=== PATIENT | female | born 1935 | race Caucasian/White ===

== ENCOUNTER 2017-04-22 18:53 | Inpatient (IN) | payer OTHER, MEDICARE ==
[~2017-04-22] VITALS: Ht 162.6 cm; Wt 57.0 kg
[~2017-04-22 18:53] MED LIST: LORA1TAB PO; PERC5TAB12 PO; REST30CA PO; SYNT112T PO; THYROID MED PO
[2017-04-22 18:56] VITALS: BP 118/70; PULSE 58; RESP 24; TEMP 98.8; O2SAT 80
[2017-04-22] MEDS ORDERED: SODIUM CHLORIDE 0.9% FLUSH 10 ML FLUSH IVF PRN (20:00)
--- NOTE | 2017-04-22 20:09 | PD ---
HPI Chief Complaint: Hip Injury Time Seen by Provider: 19:43 Travel History International Travel<30 days: No Contact w/Intl Traveler<30days: No Traveled to known affect area: No History of Present Illness HPI Patient comes into the emergency department for evaluation status post mechanical fall that occurred around 1:00 this afternoon. Patient states she was carrying some dishes when she accidentally tripped over her 's shoe causing to hit her head on the wall twisting landing on her left hip and hurting her back. Patient states she's tried resting, taking an aspirin and Aleve for the pain with minimal to no relief of symptoms. Pain is worse certain movement. Denies any radiation of the pain. Patient states she's been feeling short of breath, but has COPD and normally wears oxygen at night. Patient has felt short of breath since the fall, but has not been on her oxygen. Denies any chest pain, fevers, nausea, vomiting, abdominal pain, loss or change in bowel or bladder, loss of consciousness, or change in vision. PFSH Past Medical History Hx Anticoagulant Therapy: No Arthritis: Yes Anxiety: Yes Depression: Yes Cancer: Yes (SKIN,THYROID) Cardiovascular Problems: No High Cholesterol: Yes Chemotherapy: Yes (HX CHEMO 12 YEARS AGO) COPD: Yes Cerebrovascular Accident: No Diabetes: Yes (borderline) Diminished Hearing: No Endocrine: No Gastrointestinal Disorders: Yes Genitourinary: No Hepatitis: Yes (HEP B AND C) Hiatal Hernia: No Immune Disorder: No Inguinal Hernia: Yes (REPAIRED) Implanted Vascular Access Dvce: Yes Medical other: Yes (CELLULITIS FROM CAT BITE) Musculoskeletal: Yes (ARTHRITIS, OSTEOPINIA) Neurologic: No Psychiatric: Yes (ANXIETY) Reproductive: No Respiratory: Yes (COPD, O2 AT NIGHT, SOB) Integumentary: Yes (HX PHLEBITIS, CELLULITIS) Pneumonia: Yes Thyroid Disease: Yes (THYROID CANCER) Menopausal: Yes : 4 Para: 4 Ovarian Cysts: Yes (REMOVED) Past Surgical History Abdominal Surgery: Yes (HERNIA REPAIR) AICD: No Eye Surgery: Yes (BILAT CATARACT) Gynecologic Surgery: Yes (OVARIAN CYST REMOVED) Hysterectomy: No Joint Replacement: Yes (RIGHT HIP) Oral Surgery: Yes (TONSILLECTOMY) Pacemaker: No Thoracic Surgery: Yes Tonsillectomy: Yes Other Surgery: Yes Social History Alcohol Use: Yes (PT STATES "OCCASIONAL") Tobacco Use: No Substance Use: No Allergies-Medications (Allergen,Severity, Reaction): Coded Allergies: Sulfa (Sulfonamide Antibiotics) (Unverified Allergy, Severe, RASH, 04/22/17 ) levothyroxine (Unverified Allergy, Severe, makes her sick, 04/22/17) levothyroxine sodium (Unverified Allergy, Severe, makes her sick, 04/22/17) sulfamethoxazole (Unverified Allergy, Severe, makes her sick, 04/22/17) trimethoprim (Unverified Allergy, Severe, makes her sick, 04/22/17) acetaminophen (Unverified Allergy, Intermediate, ITCHING, 04/22/17) hydrocodone (Unverified Allergy, Intermediate, ITCHING, 04/22/17) lansoprazole (Unverified Adverse Reaction, Severe, 04/22/17) GI UPSET tramadol (Unverified Adverse Reaction, Severe, Itching, 04/22/17) Reported Meds & Prescriptions Reported Meds & Active Scripts Active Percocet 5-325 mg (Oxycodone/Acetaminophen) 1 Tab 1 Tab PO Q8HR PRN Restoril 30 mg (Temazepam) 30 Mg Cap 1 Cap PO HS 7 Days Reported [2ND Thyroid Med] PO DAILY Synthroid 112 mcg (Levothyroxine Sodium) 112 Mcg Tab 112 Mcg PO DAILY Lorazepam 1 Mg Tab 1 Mg PO BID PRN Review of Systems Except as stated in HPI: all other systems reviewed are Neg Physical Exam Narrative GENERAL: Well-developed, well nourished, in no acute distress, and non-ill appearing. SKIN: Focused skin assessment warm and dry. HEAD: Atraumatic. Normocephalic. EYES: Pupils equal and round. EOMI. No scleral icterus. No injection or drainage. ENT: No nasal bleeding or discharge. Mucous membranes pink and moist. NECK: Trachea midline. No JVD. Supple. No nuclear rigidity. No tenderness or crepitus over midline cervical spine. CARDIOVASCULAR: Regular rate and rhythm. No murmur appreciated. RESPIRATORY: No accessory muscle use. No respiratory distress. Decreased breath sounds throughout. GASTROINTESTINAL: Abdomen soft, non-tender, nondistended, and no guarding. Hepatic and splenic margins not palpable. No pulsatile mass. MUSCULOSKELETAL: No obvious deformities. No clubbing. No cyanosis. No edema. Hip: FROM and equal BL with passive flexion, extension, Abduction, Adduction, and internal/external rotation. Patient does report pain with passive movement of left hip. Pulses equal BL distal to injury. Capillary refill less than 2 seconds distal to injury and equal BL. FROM distal to injury and equal BL. Strength distal to injury equal BL. NV intact distal to injury and equal BL. Plantar flexion and dorsal flexion equal BL. Dorsal pulses equal BL. Sensation equal BL 1st web space. No tenderness or crepitus over thoracic spine. Patient reports tenderness in her lower lumbar perivertebral spinal muscles. There is no crepitus. Shoulder:FROM equal BL with passive flexion, extension, Abduction, Adduction, internal/external rotation, and pronation/supination. Sensation equal BL deltoid muscles. Pulses equal BL distal to injury. Capillary refill less than 2 seconds distal to injury and equal BL. FROM distal to injury and equal BL. Strength distal to injury equal BL. NV intact distal to injury equal BL. Flexion and extension of thumb equal BL. Equal strength and movement with abduction/adductions of BL fingers. Head Setter strength equal BL. NEUROLOGICAL: Awake and alert. No obvious cranial nerve deficits. Motor grossly within normal limits. Normal speech. PSYCHIATRIC: Appropriate mood and affect; insight and judgment normal. Data Data Last Documented VS Vital Signs Date Time Temp Pulse Resp B/P (MAP) Pulse Ox O2 Delivery O2 Flow Rate FiO2 04/22/17 20:42 94 Nasal Cannula 2.00 04/22/17 20:31 70 17 110/71 (84) 04/22/17 18:56 98.8 Orders Orders Electrocardiogram (04/22/17 19:58) Basic Metabolic Panel (Bmp) (04/22/17 19:58) Ckmb (Isoenzyme) Profile (04/22/17 19:58) Complete Blood Count With Diff (04/22/17 19:58) Magnesium (Mg) (04/22/17 19:58) Prothrombin Time / Inr (Pt) (04/22/17 19:58) Act Partial Throm Time (Ptt) (04/22/17 19:58) Troponin I (04/22/17 19:58) Chest, Single Ap (04/22/17 19:58) Ecg Monitoring (04/22/17 19:58) Iv Access Insert/Monitor (04/22/17 19:58) Oximetry (04/22/17 19:58) Oxygen Administration (04/22/17 19:58) Sodium Chloride 0.9% Flush (Ns Flush) (04/22/17 20:00) Ct Brain W/O Iv Contrast(Rout) (04/22/17 ) Ct Cerv Spine W/O Contrast (04/22/17 ) Apply Cervical Collar (04/22/17 19:58) Ct Lumb Spine W/O Contrast (04/22/17 ) Ct Thor Spine W/O Contrast (04/22/17 ) Hip, Uni(Ap&Lat) W Ap Pelvis (04/22/17 ) Blood Gas Venous (Vbg) (04/22/17 20:44) CKMB (04/22/17 20:25) CKMB% (04/22/17 20:25) Ketorolac Inj (Toradol Inj) (04/22/17 21:45) Ct Hip W/O Contrast (04/22/17 ) Splint Or Brace Apply/Monitor (04/22/17 22:22) Consult Orthopedic (04/22/17 ) Admit Order (Ed Use Only) (04/22/17 22:50) Labs Laboratory Tests Test 04/22/17 20:25 04/22/17 21:43 White Blood Count 9.7 TH/MM3 Red Blood Count 4.08 MIL/MM3 Hemoglobin 11.6 GM/DL Hematocrit 35.2 % Mean Corpuscular Volume 86.2 FL Mean Corpuscular Hemoglobin 28.5 PG Mean Corpuscular Hemoglobin Concent 33.0 % Red Cell Distribution Width 15.1 % Platelet Count 133 TH/MM3 Mean Platelet Volume 8.6 FL Neutrophils (%) (Auto) 80.0 % Lymphocytes (%) (Auto) 13.1 % Monocytes (%) (Auto) 5.0 % Eosinophils (%) (Auto) 1.7 % Basophils (%) (Auto) 0.2 % Neutrophils # (Auto) 7.7 TH/MM3 Lymphocytes # (Auto) 1.3 TH/MM3 Monocytes # (Auto) 0.5 TH/MM3 Eosinophils # (Auto) 0.2 TH/MM3 Basophils # (Auto) 0.0 TH/MM3 CBC Comment DIFF FINAL Differential Comment Prothrombin Time 11.6 SEC Prothromb Time International Ratio 1.0 RATIO Activated Partial Thromboplast Time 23.6 SEC Blood Urea Nitrogen 12 MG/DL Creatinine 0.69 MG/DL Random Glucose 124 MG/DL Calcium Level 8.3 MG/DL Magnesium Level 1.9 MG/DL Sodium Level 141 MEQ/L Potassium Level 3.8 MEQ/L Chloride Level 106 MEQ/L Carbon Dioxide Level 25.3 MEQ/L Anion Gap 10 MEQ/L Estimat Glomerular Filtration Rate 82 ML/MIN Total Creatine Kinase 142 U/L Creatine Kinase MB 1.8 NG/ML Troponin I LESS THAN 0.02 NG/ML Blood Gas Puncture Site RN IV Blood Gas Patient Temperature 98.6 Venous Blood pH 7.44 Venous Blood Partial Pressure CO2 38 mmHg Venous Blood Partial Pressure O2 43 mmHg Venous Blood HCO3 25 mmol/L Venous Blood Oxygen Saturation 78 % Venous Blood Oxygen Content 12.3 Vol % Venous Blood Base Excess 1.6 mmol/L Oxygen Delivery Device NASAL CANNULA Blood Gas Liter Flow 2 L/M [facility] Medical Decision Making Medical Screen Exam Complete: Yes Emergency Medical Condition: Yes Interpretation(s) EKG reviewed by Dr. Anton shows sinus rhythm with ventricular rate 75. No STEMI. Head CT read by the radiologist shows: 1. Diffuse stable cerebral atrophy. 2. No acute intracranial abnormality. Chest x-ray read by the radiologist shows: 1. Cardiomegaly. 2. Mild pulmonary vascular congestion bilaterally. 3. Degenerative changes and scoliosis of the thoracolumbar spine. X-ray left hip from the radiologist shows: 1. Questionable subtle cortical irregularity involving the subcapital region of the left proximal femur raising the possibility of subtle fracture. Clinical correlation is recommended. 2. Old fractures involving the left superior and inferior pubic rami. 3. Mild degenerative changes involving the left hip joint. 4. Degenerative changes involving the lower lumbar spine. CT of cervical spine read by the radiologist shows: 1. No acute fracture or prevertebral soft tissue swelling. 2. Moderate left neural foraminal narrowing at C5-6 and C6-7. 3. Grade I anterolisthesis of C7 in relation to T1 and C4 and in relation to C5. 4. Cervical spondylosis at C5-6 and C6-7. 5. No bony spinal canal stenosis. CT thoracic spine read by the radiologist shows: 1. Acute mild compression deformity involving the superior end plate of L1 with 5 mm of retropulsion of the posterior superior aspect of the vertebral body which results in minimal effacement of the anterior thecal sac but no spinal stenosis. 2. Probable mild chronic compression deformities involving T1 and T4. 3. Degenerative changes and scoliosis of the thoracic spine. 4. Coronary artery calcifications. 5. Diffuse interstitial infiltrates predominantly posteriorly consistent with acute or chronic interstitial disease. CT lumbar spine read by the radiologist shows: 1. Acute comminuted fracture involving the left sacrum. 2. Acute mild compression deformities involving the superior end plates of L1 and L2 with minimal retropulsion of the posterior superior vertebral bodies measuring 5 mm at L1 and 3 mm at L2 but resulting in no significant spinal stenoses at these levels. 3. Moderate circumferential spinal stenosis and bilateral foraminal narrowing at L5-S1 secondary to diffuse disc bulge, facet joint hypertrophy and ligamentous laxity. 4. Multiple infrarenal abdominal aortic aneurysms with the largest noted distally and measuring 3.2 cm in greatest transverse dimension. 5. Diffuse osteoporosis of the lumbar spine. CT left hip read by radiologist shows: 1. Acute comminuted fracture involving the left sacrum. 2. Acute fracture involving the left symphysis pubis. 3. Degenerative changes involving the left hip joint as well as sclerosis of the left femoral head suggesting possible osteonecrosis. 4. No acute fracture of the left proximal femur. 5. Old fracture involving the left inferior pubic ramus. Differential Diagnosis Fracture, strain, contusion, hypoxemia, COPD exacerbation, pneumonia, pneumothorax, hemopneumothorax, other Narrative Course Patient seen and examined. IV is established. Patient placed on cardiac and O2 monitoring. Patient was placed on 2 L of oxygen. Initial laboratory and radiological studies were ordered. After CT head was negative for bleed, IV Toradol was ordered secondary to patient's allergies. Patient refusing ABG will check a VBG. VBG shows pH 7.438 PCO2 of 38.2 PO2 42.7 bicarbonate 25.4 Patient reassessed in no acute distress. Discussed all findings and plan care with patient who is agreeable for admission. All questions were answered. TLSO braces ordered. Discussed patient with Dr. Anton, who is in agreement with plan of care and disposition. Discussed patient with orthopedics, who is agreeable to consult patient. Discussed patient with hospitalist who is agreeable to admit the patient. Physician Communication Physician Communication [id number] Riley, orthopedic on-call, who agrees with TLSO brace and will consult. [id number] Robles, who is agreeable to admit the patient. Diagnosis Primary Impression: Sacral fracture, closed Qualified Codes: S32.10XA - Unspecified fracture of sacrum, initial encounter for closed fracture Additional Impressions: Fracture of ramus of left pubis Qualified Codes: S32.592A - Other specified fracture of left pubis, initial encounter for closed fracture Compression fx, lumbar spine Qualified Codes: S32.010A - Wedge compression fracture of first lumbar vertebra, initial encounter for closed fracture Aneurysm of infrarenal abdominal aorta Head injury, closed Qualified Codes: S09.90XA - Unspecified injury of head, initial encounter COPD (chronic obstructive pulmonary disease) Qualified Codes: J44.9 - Chronic obstructive pulmonary disease, unspecified Condition: Stable Prem Reed Apr 22, 2017 20:09
[2017-04-22 20:31] VITALS: BP 110/71; PULSE 70; RESP 17; O2SAT 93
[2017-04-22 20:42] VITALS: O2SAT 94
[2017-04-22 20:53] LABS: AUTOMATED NEUTROPHIL # 7.7 TH/MM3 (1.8-7.7); BASOPHIL % 0.2 % (0.0-2.0); EOSINOPHIL # 0.2 TH/MM3 (0-0.4); EOSINOPHIL % 1.7 % (0.0-4.0); HEMATOCRIT 35.2 % (35.0-46.0); HEMO FLAGS DIFF FINAL; LYMPH % 13.1 % (9.0-44.0); LYMPHOCYTE # 1.3 TH/MM3 (1.0-4.8); MEAN CELL VOLUME 86.2 FL (80.0-100.0); MEAN CORPUSCULAR HEMOGLOBIN 28.5 PG (27.0-34.0); PLATELET COUNT 133 TH/MM3 (150-450); RED BLOOD COUNT 4.08 MIL/MM3 (4.00-5.30); RED CELL DISTRIBUTION WIDTH 15.1 % (11.6-17.2); WHITE BLOOD COUNT 9.7 TH/MM3 (4.0-11.0)
[2017-04-22 20:59] LABS: APTT (PATIENT) 23.6 SEC (24.3-30.1); PROTHROMBIN TIME - PATIENT 11.6 SEC (9.8-11.6)
[2017-04-22 21:17] LABS: ANION GAP 10 MEQ/L (5-15); BICARBONATE 25.3 MEQ/L (21.0-32.0); BLOOD UREA NITROGEN 12 MG/DL (7-18); CHLORIDE 106 MEQ/L (98-107); GLOMERULAR FILTRATION RATE 82 ML/MIN (>89); MAGNESIUM 1.9 MG/DL (1.5-2.5); POTASSIUM 3.8 MEQ/L (3.5-5.1); SODIUM (NA) 141 MEQ/L (136-145)
[2017-04-22 21:21] LABS: CREATINE KINASE 142 U/L (26-192)
--- NOTE | 2017-04-22 21:29 | RADRPT ---
EXAM DATE/TIME: 04/22/2017 21:19 [facility] COMPARISON: CT BRAIN W/O CONTRAST, February 10, 2016, 1:09. INDICATIONS : Trauma, fall. RADIATION DOSE: 47.22 CTDIvol (mGy) MEDICAL HISTORY : Hernia. Diabetes mellitus type 2. Hepatitis.Skin and thyroid cancer. SURGICAL HISTORY : Hernia repair. ENCOUNTER: Initial ACUITY: 1 day PAIN SCALE: 0/10 LOCATION: cranial TECHNIQUE: Multiple contiguous axial images were obtained of the head. Using automated exposure control and adj ustment of the mA and/or kV according to patient size, radiation dose was kept as low as reasonably a chievable to obtain optimal diagnostic quality images. DICOM format image data is available electro nically for review and comparison. FINDINGS: CEREBRUM: Diffuse cerebral atrophy is again noted and stable. No evidence of midline shift, mass lesion, hemorr henry or acute infarction. No extra-axial fluid collections are seen. POSTERIOR FOSSA: The cerebellum and brainstem are intact. The 4th ventricle is midline. The cerebellopontine angle i s unremarkable. EXTRACRANIAL: The visualized portion of the orbits is intact. SKULL: The calvaria is intact. No evidence of skull fracture. CONCLUSION: 1. Diffuse stable cerebral atrophy. 2. No acute intracranial abnormality. Brian Freeman MD on April 22, 2017 at 21:26 Board Certified Radiologist. This report was verified electronically.
--- NOTE | 2017-04-22 21:31 | RADRPT ---
EXAM DATE/TIME: 04/22/2017 20:51 [facility] COMPARISON: CHEST SINGLE AP, November 08, 2013, 13:36. INDICATIONS : Chest pain post fall MEDICAL HISTORY : Carcinoma, thyroid. Chronic obstructive pulmonary disease. Hepatitis. SURGICAL HISTORY : Tonsillectomy. ENCOUNTER: Initial ACUITY: 1 day PAIN SCORE: 7/10 LOCATION: Bilateral chest FINDINGS: The heart is enlarged. Mild pulmonary vascular congestion is noted bilaterally. Degenerative change s and scoliosis of the thoracolumbar spine are noted. CONCLUSION: 1. Cardiomegaly. 2. Mild pulmonary vascular congestion bilaterally. 3. Degenerative changes and scoliosis of the thoracolumbar spine. Brian Freeman MD on April 22, 2017 at 21:20 Board Certified Radiologist. This report was verified electronically.
--- NOTE | 2017-04-22 21:37 | RADRPT ---
EXAM DATE/TIME: 04/22/2017 20:53 [facility] COMPARISON: No previous studies available for comparison. INDICATIONS : Left hip pain post fall MEDICAL HISTORY : Carcinoma, thyroid. Chronic obstructive pulmonary disease. Hepatitis. SURGICAL HISTORY : Tonsillectomy. ENCOUNTER: Initial ACUITY: 1 day PAIN SCORE: 10/10 LOCATION: Left hip FINDINGS: There is very subtle subcapital cortical irregularity raising the possibility of subtle subcapital fr acture of the left proximal femur. Clinical correlation is recommended. Old fractures involving the left superior and inferior pubic rami are noted. Mild degenerative changes are noted involving the left hip joint. Right hip replacement is noted. Degenerative changes are noted within the lower lum bar spine. There is an acute fracture involving the left sacrum also. CONCLUSION: 1. Questionable subtle cortical irregularity involving the subcapital region of the left proximal fem ur raising the possibility of subtle fracture. Clinical correlation is recommended. 2. Acute left sacrum fracture. 3. Old fractures involving the left superior and inferior pubic rami. 4. Mild degenerative changes involving the left hip joint. 5. Degenerative changes involving the lower lumbar spine. Brian Freeman MD on April 22, 2017 at 21:21 Board Certified Radiologist. This report was verified electronically.
[2017-04-22] MEDS ORDERED: KETOROLAC TROMETHAMINE 30 MG/ML (IVP) VIAL IV PUSH ONE (21:45)
--- NOTE | 2017-04-22 21:51 | RADRPT ---
EXAM DATE/TIME: 04/22/2017 21:19 [facility] COMPARISON: No previous studies available for comparison. INDICATIONS : Trauma, fall. RADIATION DOSE: 11.26 CTDIvol (mGy) MEDICAL HISTORY : Hernia. Diabetes mellitus type 2. Hepatitis. Skin and thyroid cancer. SURGICAL HISTORY : Hernia repair. ENCOUNTER: Initial ACUITY: 1 day PAIN SCALE: 3/10 LOCATION: Neck TECHNIQUE: Volumetric scanning of the cervical spine was performed. Multiplanar reconstructions in the sagittal, coronal and oblique axial planes were performed. Using automated exposure control and adjustment o f the mA and/or kV according to patient size, radiation dose was kept as low as reasonably achievable to obtain optimal diagnostic quality images. DICOM format image data is available electronically f or review and comparison. FINDINGS: There is no acute fracture or prevertebral soft tissue swelling. There is grade I anterolisthesis of C7 in relation to T1. There is also grade I anterolisthesis of C4 in relation to C5. Cervical spon dylosis is noted at C5-6 and C6-7. The bony relationship and alignment between C1 and C2 is well yi ntained. Scoliosis of the cervical spine is noted. No bony spinal canal stenosis is noted. Moderat e left neural foraminal narrowing is noted at C5-6 and C6-7. CONCLUSION: 1. No acute fracture or prevertebral soft tissue swelling. 2. Moderate left neural foraminal narrowing at C5-6 and C6-7. 3. Grade I anterolisthesis of C7 in relation to T1 and C4 and in relation to C5. 4. Cervical spondylosis at C5-6 and C6-7. 5. No bony spinal canal stenosis. Brian Freeman MD on April 22, 2017 at 21:34 Board Certified Radiologist. This report was verified electronically.
[2017-04-22 21:54] LABS: CKMB 1.8 NG/ML (0.5-3.6)
--- NOTE | 2017-04-22 22:07 | RADRPT ---
EXAM DATE/TIME: 04/22/2017 21:22 [facility] COMPARISON: No previous studies available for comparison. INDICATIONS : Trauma, fall. RADIATION DOSE: 35.86 CTDIvol (mGy) ; Combined studies - Thoracic Spine/Lumbar Spine MEDICAL HISTORY : Hernia. Diabetes mellitus type 2. Hepatitis. Skin and thyroid cancer. SURGICAL HISTORY : Hernia repair. ENCOUNTER: Initial ACUITY: 1 day PAIN SCALE: 6/10 LOCATION: Thoracic TECHNIQUE: Volumetric scanning of the thoracic spine was performed. Multiplanar reconstructions in the sagittal , coronal and oblique axial planes were performed. Using automated exposure control and adjustment o f the mA and/or kV according to patient size, radiation dose was kept as low as reasonably achievable to obtain optimal diagnostic quality images. DICOM format image data is available electronically f or review and comparison. FINDINGS: There is evidence of an acute mild compression fracture involving the superior end plate of L1 with m inimal retropulsion of the posterior superior aspect of the vertebral body measuring approximately 5 mm and resulting in slight defacement of the anterior thecal sac at this level. No other acute fract ures are identified within the thoracic spine. There are mild probable chronic compression deformiti es involving T1 and T4. Degenerative changes and scoliosis of the thoracic spine are noted. Coronar y artery calcifications are noted. Diffuse interstitial infiltrates are noted predominantly posterio rly within the lungs consistent with acute or chronic interstitial disease. CONCLUSION: 1. Acute mild compression deformity involving the superior end plate of L1 with 5 mm of retropulsion of the posterior superior aspect of the vertebral body which results in minimal effacement of the ant erior thecal sac but no spinal stenosis. 2. Probable mild chronic compression deformities involving T1 and T4. 3. Degenerative changes and scoliosis of the thoracic spine. 4. Coronary artery calcifications. 5. Diffuse interstitial infiltrates predominantly posteriorly consistent with acute or chronic inters titial disease. Brian Freeman MD on April 22, 2017 at 21:49 Board Certified Radiologist. This report was verified electronically.
--- NOTE | 2017-04-22 22:31 | RADRPT ---
EXAM DATE/TIME: 04/22/2017 21:22 [facility] COMPARISON: No previous studies available for comparison. INDICATIONS : Trauma, fall. RADIATION DOSE: 35.86 CTDIvol (mGy) ; Combined studies - Thoracic Spine/Lumbar Spine MEDICAL HISTORY : Hernia. Diabetes mellitus type 2. Hepatitis. Skin and thyroid cancer. SURGICAL HISTORY : Hernia repair. ENCOUNTER: Initial ACUITY: 1 day PAIN SCALE: 6/10 LOCATION: Lumbar TECHNIQUE: Volumetric scanning of the lumbar spine was performed. Multiplanar reconstructions in the sagittal, coronal and oblique axial planes were performed. Using automated exposure control and adjustment of the mA and/or kV according to patient size, radiation dose was kept as low as reasonably achievable t o obtain optimal diagnostic quality images. DICOM format image data is available electronically for review and comparison. FINDINGS: There is evidence of acute mild compression fractures involving the superior end plates of L1 and L2 with 5 mm of retropulsion of the posterior superior aspect of L1 and 3 mm of retropulsion of the post erior superior aspect of L2. No spinal stenosis is noted at either level. There is also acute commi nuted fractures involving the left sacrum. Multiple infrarenal abdominal aortic aneurysms are noted with the largest distally measuring 3.2 cm in transverse dimension. There is no spondylolisthesis of the lumbar spine. Diffuse osteoporosis of the lumbar spine is noted. There is moderate circumferen tial spinal stenosis and bilateral foraminal narrowing at L5-S1 secondary to diffuse disc bulge, face t joint hypertrophy and ligamentous laxity. CONCLUSION: 1. Acute comminuted fracture involving the left sacrum. 2. Acute mild compression deformities involving the superior end plates of L1 and L2 with minimal ret ropulsion of the posterior superior vertebral bodies measuring 5 mm at L1 and 3 mm at L2 but resultin g in no significant spinal stenoses at these levels. 3. Moderate circumferential spinal stenosis and bilateral foraminal narrowing at L5-S1 secondary to d iffuse disc bulge, facet joint hypertrophy and ligamentous laxity . 4. Multiple infrarenal abdominal aortic aneurysms with the largest noted distally and measuring 3.2 c m in greatest transverse dimension. 5. Diffuse osteoporosis of the lumbar spine. Brian Freeman MD on April 22, 2017 at 22:04 Board Certified Radiologist. This report was verified electronically.
--- NOTE | 2017-04-22 22:42 | RADRPT ---
EXAM DATE/TIME: 04/22/2017 21:22 [place] COMPARISON: No previous studies available for comparison. INDICATIONS : Fall. Left hip pain. RADIATION DOSE: 16.54 CTDIvol (mGy) MEDICAL HISTORY : Diabetes mellitus type 2. Hepatitis. Skin and thyroid cancer. Hernia. SURGICAL HISTORY : Hernia repair. ENCOUNTER: Initial ACUITY: 1 day PAIN SCALE: 6/10 LOCATION: Left pelvis TECHNIQUE: Volumetric scanning of the hip was performed. Using automated exposure control and adjustment of the mA and/or kV according to patient size, radiation dose was kept as low as reasonably achievable to o btain optimal diagnostic quality images. DICOM format image data is available electronically for rev iew and comparison. FINDINGS: There is evidence of an acute comminuted fracture involving the left sacrum. There is also an acute fracture involving the left symphysis pubis. Old left inferior pubic ramus fracture is noted. No ac [place] proximal femur fracture is noted. Degenerative changes involving the left hip joint are noted. There is sclerosis of the left femoral head suggesting a possible osteonecrosis. Right hip replaceme nt is noted. CONCLUSION: 1. Acute comminuted fracture involving the left sacrum. 2. Acute fracture involving the left symphysis pubis. 3. Degenerative changes involving the left hip joint as well as sclerosis of the left femoral head alejandre ggesting possible osteonecrosis. 4. No acute fracture of the left proximal femur. 5. Old fracture involving the left inferior pubic ramus. Brian Freeman MD on April 22, 2017 at 22:16 Board Certified Radiologist. This report was verified electronically.
--- NOTE | 2017-04-22 22:56 | HHI.HP ---
HPI Service [facility] Primary Care Physician Non-Staff Admission Diagnosis sacrum fracture, pubic rami fracture, lumbar spine compression fx Diagnoses: (1) Fall Diagnosis: Principal (2) Sacral fracture, closed Diagnosis: Principal (3) Fracture of ramus of left pubis Diagnosis: Principal (4) Compression fx, lumbar spine Diagnosis: Principal (5) Thrombocytopenia Diagnosis: Principal (6) COPD (chronic obstructive pulmonary disease) Diagnosis: Principal Travel History International Travel<30 Days: No Contact w/Intl Traveler <30 Da: No Traveled to Known Affected Are: No History of Present Illness This is an 82-year-old female with a PMH of Anxiety, Depression, COPD, Hepatitis B and C and Hypothyroidism who was brought to the ER secondary to c/o hip pain after a fall. Per pt she tripped over one of 's shoes and landed on left hip. +head trauma, no LOC reported. On arrival, BP 118/70, HR 58, O2 sat 80% on RA, Afebrile. Currently O2 sat 93% on 2L NC. CBC unremarkable except for platelets 133, previously 167 on 07/07/15. GFR 82, previously 169 on 07/07/15. Troponin negative. INR 1.0 CXR with mild pulmonary vascular congestion bilaterally. CT Head with no acute findings. CT C-spine negative. CT T/L Spine with acute mild compression deformity of L1 and L2, moderate spinal stenosis and bilateral foraminal narrowing at L5-S1, infrarenal abdominal aortic aneurysms, largest 3.2 cm, CT Lower Extremity w/ acute comminuted fracture involving left sacral and acute fracture involving left symphysis pubis. Ortho consulted by ER physician, recommended TLSO brace and eval in am. Review of Systems Except as stated in HPI: all other systems reviewed are Neg ROS: 14 point review of systems otherwise negative. Past Family Social History Past Medical History PMH: Anxiety, Depression, COPD, Hepatitis B and C and Hypothyroidism Past Surgical History PAST SURGICAL HISTORY: Hernia Repair, Bilateral Cataract Surgery, Ovarian Cyst Removal, Right Hip Replacement, Tonsillectomy Allergies: Coded Allergies: Sulfa (Sulfonamide Antibiotics) (Unverified Allergy, Severe, RASH, 04/22/17 ) levothyroxine (Unverified Allergy, Severe, makes her sick, 04/22/17) levothyroxine sodium (Unverified Allergy, Severe, makes her sick, 04/22/17) sulfamethoxazole (Unverified Allergy, Severe, makes her sick, 04/22/17) trimethoprim (Unverified Allergy, Severe, makes her sick, 04/22/17) acetaminophen (Unverified Allergy, Intermediate, ITCHING, 04/22/17) hydrocodone (Unverified Allergy, Intermediate, ITCHING, 04/22/17) lansoprazole (Unverified Adverse Reaction, Severe, 04/22/17) GI UPSET tramadol (Unverified Adverse Reaction, Severe, Itching, 04/22/17) Family History PAST FAMILY HISTORY: Reviewed. No h/o DM or CAD Social History PAST SOCIAL HISTORY: Occasional alcohol. Negative for tobacco or drugs. Physical Exam Vital Signs Vital Signs Date Time Temp Pulse Resp B/P (MAP) Pulse Ox O2 Delivery O2 Flow Rate FiO2 04/22/17 20:31 93 Nasal Cannula 2.00 04/22/17 20:31 70 17 110/71 (84) 93 Nasal Cannula 2.00 04/22/17 19:15 16 04/22/17 18:56 98.8 58 24 118/70 (86) 80 Room Air Physical Exam PE: GENERAL: Elderly white female in no acute distress. HEENT: PERRLA, EOMI. No scleral icterus or conjunctival pallor. No lid lag or facial droop. CARDIOVASCULAR: Regular rate and rhythm. No obvious murmurs to auscultation. No chest tenderness to palpation. RESPIRATORY: No obvious rhonchi or wheezing. Clear to auscultation. Breath sounds equal bilaterally. GASTROINTESTINAL: Abdomen soft, non-tender, nondistended. BS normal. MUSCULOSKELETAL: Extremities without clubbing, cyanosis, or edema. No obvious deformities. Decreased ROM of LE due to pain complaints, worse on left. NEUROLOGICAL: Awake, alert and oriented x4. No focal neurologic deficits. Moving both upper and lower extremities spontaneously. Laboratory Laboratory Tests Test 04/22/17 20:25 White Blood Count 9.7 Red Blood Count 4.08 Hemoglobin 11.6 Hematocrit 35.2 Mean Corpuscular Volume 86.2 Mean Corpuscular Hemoglobin 28.5 Mean Corpuscular Hemoglobin Concent 33.0 Red Cell Distribution Width 15.1 Platelet Count 133 Mean Platelet Volume 8.6 Neutrophils (%) (Auto) 80.0 Lymphocytes (%) (Auto) 13.1 Monocytes (%) (Auto) 5.0 Eosinophils (%) (Auto) 1.7 Basophils (%) (Auto) 0.2 Neutrophils # (Auto) 7.7 Lymphocytes # (Auto) 1.3 Monocytes # (Auto) 0.5 Eosinophils # (Auto) 0.2 Basophils # (Auto) 0.0 CBC Comment DIFF FINAL Differential Comment Prothrombin Time 11.6 Prothromb Time International Ratio 1.0 Activated Partial Thromboplast Time 23.6 Blood Urea Nitrogen 12 Creatinine 0.69 Random Glucose 124 Calcium Level 8.3 Magnesium Level 1.9 Sodium Level 141 Potassium Level 3.8 Chloride Level 106 Carbon Dioxide Level 25.3 Anion Gap 10 Estimat Glomerular Filtration Rate 82 Total Creatine Kinase 142 Creatine Kinase MB 1.8 Troponin I LESS THAN 0.02 Result Diagram: 04/22/17202404/22/172024 Caprini VTE Risk Assessment Caprini VTE Risk Assessment: Mod/High Risk (score >= 2) Caprini Risk Assessment Model Point Value = 1 Point Value = 2 Point Value = 3 Point Value = 5 Age 41-60 Minor surgery BMI > 25 kg/m2 Swollen legs Varicose veins or History of unexplained or recurrent spontaneous Oral contraceptives or hormone replacement Sepsis (< 1 month) Serious lung disease, including pneumonia (< 1 month) Abnormal pulmonary function Acute myocardial infarction Congestive heart failure (< 1 month) History of inflammatory bowel disease Medical patient at bed rest Age 61-74 Arthroscopic surgery Major open surgery (> 45 min) Laparoscopic surgery (> 45 min) Malignancy Confined to bed (> 72 hours) Immobilizing plaster cast Central venous access Age >= 75 History of VTE Family history of VTE Factor V Leiden Prothrombin [id number] Lupus anticoagulant Anticardiolipin antibodies Elevated serum homocysteine Heparin-induced thrombocytopenia Other congenital or acquired thrombophilia Stroke (< 1 month) Elective arthroplasty Hip, pelvis, or leg fracture Acute spinal cord injury (< 1 month) Prophylaxis Regimen Total Risk Factor Score Risk Level Prophylaxis Regimen 0-1 Low Early ambulation 2 Moderate Order ONE of the following: *Sequential Compression Device (SCD) *Heparin 5000 units SQ BID 3-4 Higher Order ONE of the following medications: *Heparin 5000 units SQ TID *Enoxaparin/Lovenox 40 mg SQ daily (WT < 150 kg, CrCl > 30 mL/min) *Enoxaparin/Lovenox 30 mg SQ daily (WT < 150 kg, CrCl > 10-29 mL/min) *Enoxaparin/Lovenox 30 mg SQ BID (WT < 150 kg, CrCl > 30 mL/min) AND/OR *Sequential Compression Device (SCD) 5 or more Highest Order ONE of the following medications: *Heparin 5000 units SQ TID (Preferred with Epidurals) *Enoxaparin/Lovenox 40 mg SQ daily (WT < 150 kg, CrCl > 30 mL/min) *Enoxaparin/Lovenox 30 mg SQ daily (WT < 150 kg, CrCl > 10-29 mL/min) *Enoxaparin/Lovenox 30 mg SQ BID (WT < 150 kg, CrCl > 30 mL/min) AND *Sequential Compression Device (SCD) Assessment and Plan Problem List: (1) Fall ICD Code: W19.XXXA - Unspecified fall, initial encounter (2) Fracture of ramus of left pubis ICD Code: S32.592A - Other specified fracture of left pubis, initial encounter for closed fracture Status: Acute (3) Sacral fracture, closed ICD Code: S32.10XA - Unspecified fracture of sacrum, initial encounter for closed fracture Status: Acute (4) Compression fx, lumbar spine ICD Code: S32.000A - Wedge compression fracture of unspecified lumbar vertebra , initial encounter for closed fracture Status: Acute (5) Thrombocytopenia ICD Code: D69.6 - Thrombocytopenia, unspecified (6) COPD (chronic obstructive pulmonary disease) ICD Code: J44.9 - Chronic obstructive pulmonary disease, unspecified Status: Acute Assessment and Plan A/P: 1. Fall: s/p mechanical trip and fall, +head trauma, no LOC reported. CT Head w/ no acute findings, CT C-Spine negative for fracture, images reviewed by me. 2. Left Sacral Fx: secondary to above. CT Lower Ext w/ acute comminuted fracture of left sacrum, images reviewed by me. Ortho consulted by ER physician , darrius forrest in am. 3. Left Pubic Fx: secondary to above. CT w/ acute fracture of left symphysis pubis, images reviewed. Ortho to eval, PT for eval/tx. 4. L1-L2 Compression Fx: secondary to above. CT L-Spine w/ acute mild compression deformity L1-L2, images reviewed. Ortho recommended TLSO brace, will eval in am. 5. Thrombocytopenia: Acute. Platelets 133, previously 167 on 07/07/15. No active bleeding at this time, will monitor, repeat labs in am. 6. COPD: Chronic Respiratory Failure, stable. Transient hypoxia on arrival w / O2 sat 80%, currently 95% on 2L NC, no wheezing, no acute respiratory distress. Monitor. DuoNeb prn. 7. DVT Prophylaxis: Lovenox 8. Social work for d/c planning as needed. 9. Case discussed w/ ER physician at length. Physician Certification 2 Midnight Certification Type: Admission for Inpatient Services Order for Inpatient Services The services are ordered in accordance with Medicare regulations or non- Medicare payer requirements, as applicable. In the case of services not specified as inpatient-only, they are appropriately provided as inpatient services in accordance with the 2-midnight benchmark. Estimated LOS (days): 2 days is the estimated time the patient will need to remain in the hospital, assuming treatment plan goals are met and no additional complications. Post-Hospital Plan: Not yet determined Problem Qualifiers (1) Sacral fracture, closed: Qualified Codes: S32.10XA - Unspecified fracture of sacrum, initial encounter for closed fracture (2) Fracture of ramus of left pubis: Qualified Codes: S32.592A - Other specified fracture of left pubis, initial encounter for closed fracture (3) Compression fx, lumbar spine: Qualified Codes: S32.010A - Wedge compression fracture of first lumbar vertebra , initial encounter for closed fracture (4) COPD (chronic obstructive pulmonary disease): Qualified Codes: J44.9 - Chronic obstructive pulmonary disease, unspecified Asuncion Robles MD Apr 22, 2017 22:56
[2017-04-22] MEDS ORDERED: BISACODYL 10 MG SUPP RECTAL PRN (23:00)
[2017-04-22] MEDS ORDERED: SODIUM CHLORIDE 0.9% FLUSH 10 ML FLUSH IV FLUSH PRN (23:00)
[2017-04-22] MEDS ORDERED: MAGNESIUM HYDROXIDE SUSP 30 ML CUP PO PRN (23:00)
[2017-04-22] MEDS ORDERED: RESP: ALBUTEROL 2.5 MG/IPRATROPIUM 0.5 MG NEB (PRN) NEB (23:00)
[2017-04-22] MEDS ORDERED: LACTULOSE SYRUP 20 GM/30 ML CUP PO PRN (23:00)
[2017-04-22] MEDS ORDERED: SENNOSIDES 8.6 MG TAB PO PRN (23:00)
[2017-04-22] MEDS ORDERED: ONDANSETRON HCL 4 MG/2 ML VIAL IVP PRN (23:00)
[2017-04-22 23:01] VITALS: BP 117/62; PULSE 73; RESP 16; O2SAT 95
[2017-04-22] MEDS: SODIUM CHLOR 0.9% 1000 ML INJ 1,000 ML IV SCH (23:40)
[2017-04-22 23:46] VITALS: BP 118/62; PULSE 73; RESP 17; TEMP 97.2; O2SAT 92
[2017-04-23] MEDS: MORPHINE SULFATE 4 MG/ML INJ IV PRN ×5 (00:25→22:15)
[2017-04-23 00:36] LABS: BLOOD GAS VENOUS BASE EXCESS 1.6 mmol/L (-2-2); BLOOD GAS VENOUS HCO3 25 mmol/L (22-26); BLOOD GAS VENOUS O2 CONTENT 12.3 Vol % (9.0-17.0); BLOOD GAS VENOUS O2 HGB SAT 78 % (70-76); BLOOD GAS VENOUS PCO2 38 mmHg (44-48); BLOOD GAS VENOUS PO2 43 mmHg (35-40); BLOOD GAS VENOUS pH 7.44 (7.360-7.400); CRITICAL VALUE NO; OXYGEN DEVICE NASAL CANNULA; TEMP CORR TO 98.6
[2017-04-23 00:37] LABS: LITER FLOW 2 L/M; STAT YES
[2017-04-23 04:55] VITALS: BP 100/54; PULSE 70; RESP 17; TEMP 97; O2SAT 92
[2017-04-23] MEDS ORDERED: INSULIN HUMAN REGULAR 1,000 UNITS/10 ML VIAL SQ PRN (07:00)
[2017-04-23] MEDS ORDERED: CHLORHEXIDINE GLUCONATE 2 % 1 PACK (2 CLOTHS) TOPICAL PRN (07:00)
[2017-04-23] MEDS ORDERED: LACTATED RINGER'S 1000 ML IV PRN (07:00)
[2017-04-23] MEDS ORDERED: POVIDONE IODINE 5% (ANTISEPSIS KIT) 4 APPLICATIONS EACH NARE PRN (07:00)
[2017-04-23 07:46] LABS: AUTOMATED NEUTROPHIL # 5.3 TH/MM3 (1.8-7.7); BASOPHIL % 0.4 % (0.0-2.0); EOSINOPHIL # 0.6 TH/MM3 (0-0.4); EOSINOPHIL % 7.5 % (0.0-4.0); HEMO FLAGS DIFF FINAL; LYMPH % 25.4 % (9.0-44.0); LYMPHOCYTE # 2.2 TH/MM3 (1.0-4.8); MEAN CELL VOLUME 86.6 FL (80.0-100.0); MEAN CORPUSCULAR HEMOGLOBIN 29.1 PG (27.0-34.0); MEAN CORPUSCULAR HGB CONC 33.6 % (32.0-36.0); MONO % 5.2 % (0.0-8.0); NEUT % 61.5 % (16.0-70.0); PLATELET COUNT 113 TH/MM3 (150-450); RED BLOOD COUNT 3.93 MIL/MM3 (4.00-5.30); RED CELL DISTRIBUTION WIDTH 15.4 % (11.6-17.2); WHITE BLOOD COUNT 8.7 TH/MM3 (4.0-11.0)
[2017-04-23 08:00] VITALS: BP 103/62; PULSE 72; RESP 20; TEMP 98.2; O2SAT 90
[2017-04-23 08:08] LABS: ANION GAP 6 MEQ/L (5-15); AST (GOT) 16 U/L (15-37); BICARBONATE 26.6 MEQ/L (21.0-32.0); BLOOD UREA NITROGEN 14 MG/DL (7-18); CHLORIDE 106 MEQ/L (98-107); GLOMERULAR FILTRATION RATE 98 ML/MIN (>89); POTASSIUM 3.4 MEQ/L (3.5-5.1); SODIUM (NA) 139 MEQ/L (136-145)
[2017-04-23 08:10] LABS: ALT (GPT) 17 U/L (10-53)
[2017-04-23 08:12] LABS: ALKALINE PHOSPHATASE 69 U/L (45-117); TOTAL BILIRUBIN ADULT 0.5 MG/DL (0.2-1.0)
[2017-04-23] MEDS: ENOXAPARIN SODIUM 40 MG/0.4 ML SYRINGE SQ SCH (08:24)
[2017-04-23] MEDS: SODIUM CHLOR 0.9% 1000 ML INJ 1,000 ML IV SCH ×2 (08:24→18:54)
[2017-04-23] MEDS: DOCUSATE SODIUM 50 MG/SENNA 8.6 MG TAB PO SCH ×2 (08:24→20:39)
[2017-04-23] MEDS: SODIUM CHLORIDE 0.9% FLUSH 10 ML FLUSH IV FLUSH SCH ×2 (08:24→20:39)
--- NOTE | 2017-04-23 08:40 | PD.CONS ---
cc: Sofia Donnelly Sacrum fracture, lumbar compression fractures, pubic symphysis fracture (Sofia Donnelly) HPI Service Orthopedic Surgeons Consult Requested By ER staff Reason for Consult Pubic and lumbar fractures Primary Care Physician Non-Staff Admission Diagnosis sacrum fracture, pubic symphysis fracture, lumbar spine compression fxs Diagnoses: (1) Fall Diagnosis: Principal (2) Sacral fracture, closed (3) Compression fracture of L1 lumbar vertebra (4) Compression fracture of L2 lumbar vertebra (5) Closed fracture of left side of symphysis pubis (6) COPD (chronic obstructive pulmonary disease) (7) Thrombocytopenia Chief Complaint: Fall, pubic and lumbar fractures (Sofia Donnelly) History of Present Illness 82-year-old female presented to [place] emergency department late last night after she had a trip and fall incident. She admits she had gynecological surgery last week and has been very "sick and out of it on the pain medication" . She states she's had a very Difficult time in the last week since surgery. Last evening she states that she tripped and fell over her boyfriend shoes. She presented to [facility] after having immediate pain in her pelvis and had a difficult time walking. Upon evaluation and radiographs was revealed that she sustained nondisplaced sacral fracture, left pubic symphasis fracture as well as L1 and L2 compression fractures. At this time orthopedic consultation was requested. She states she previously ambulated unassisted prior to this injury. Her orthopedic surgeries include a right hip total arthroplasty by Dr. Bakari Obrien. She is not currently anticoagulated. She lives at home with her boyfriend. No other signs of musculoskeletal injuries at this time. (Sofia Donnelly) Review of Systems Well outlined in medical record (Sofia Donnelly) Past Family Social History Past Medical History PMH: Anxiety, Depression, COPD, Hepatitis B and C and Hypothyroidism Past Surgical History PAST SURGICAL HISTORY: Hernia Repair, Bilateral Cataract Surgery, Ovarian Cyst Removal, Right Hip Replacement, Tonsillectomy (Sofia Donnelly) Allergies: Coded Allergies: Sulfa (Sulfonamide Antibiotics) (Unverified Allergy, Severe, RASH, 04/22/17 ) levothyroxine (Unverified Allergy, Severe, makes her sick, 04/22/17) levothyroxine sodium (Unverified Allergy, Severe, makes her sick, 04/22/17) sulfamethoxazole (Unverified Allergy, Severe, makes her sick, 04/22/17) trimethoprim (Unverified Allergy, Severe, makes her sick, 04/22/17) acetaminophen (Unverified Allergy, Intermediate, ITCHING, 04/22/17) hydrocodone (Unverified Allergy, Intermediate, ITCHING, 04/22/17) lansoprazole (Unverified Adverse Reaction, Severe, 04/22/17) GI UPSET tramadol (Unverified Adverse Reaction, Severe, Itching, 04/22/17) Active Ordered Medications Current Medications Medications (Trade) Dose Ordered Sig/Loy Route Start Time Stop Time Status Last Admin (Duoneb Neb) 1 ampule Q4HR NEB PRN NEB 04/22/17 23:00 Sodium Chloride 1,000 ml @ 100 mls/hr Q10H IV 04/22/17 22:54 04/22/17 23:40 (NS Flush) 2 ml UNSCH PRN IV FLUSH 04/22/17 23:00 (NS Flush) 2 ml BID IV FLUSH 04/23/17 09:00 (Zofran Inj) 4 mg Q6H PRN IVP 04/22/17 23:00 (Lovenox Inj) 40 mg Q24H SQ 04/23/17 09:00 (Morphine Inj) 2 mg Q3H PRN IV 04/22/17 23:00 04/23/17 04:09 (Homa-Colace) 1 tab BID PO 04/23/17 09:00 (Milk Of Magnesia Liq) 30 ml Q12H PRN PO 04/22/17 23:00 (Senokot) 17.2 mg Q12H PRN PO 04/22/17 23:00 (Dulcolax Supp) 10 mg DAILY PRN RECTAL 04/22/17 23:00 (Lactulose Liq) 30 ml DAILY PRN PO 04/22/17 23:00 Lactated Ringer's 1,000 ml @ 30 mls/hr Q24H PRN IV 04/23/17 07:00 04/26/17 06:59 (Betadine 5% Antisepsis Kit) 1 applic CREDIT VERIFICATION CLERK PRN EACH NARE 04/23/17 07:00 04/26/17 06:59 (Chlorhexidine 2% Cloth) 3 pack CREDIT VERIFICATION CLERK PRN TOPICAL 04/23/17 07:00 04/26/17 06:59 (NovoLIN R INJ) See Protocol Table ... CREDIT VERIFICATION CLERK PRN SQ 04/23/17 07:00 04/26/17 06:59 Reported Meds & Active Scripts Active Percocet 5-325 mg (Oxycodone/Acetaminophen) 1 Tab 1 Tab PO Q8HR PRN Restoril 30 mg (Temazepam) 30 Mg Cap 1 Cap PO HS 7 Days Reported [2ND Thyroid Med] PO DAILY Synthroid 112 mcg (Levothyroxine Sodium) 112 Mcg Tab 112 Mcg PO DAILY Lorazepam 1 Mg Tab 1 Mg PO BID PRN Family History PAST FAMILY HISTORY: Reviewed. No h/o DM or CAD Social History PAST SOCIAL HISTORY: Occasional alcohol. Negative for tobacco or drugs. (Sofia Donnelly) Physical Exam Vital Signs Vital Signs Date Time Temp Pulse Resp B/P (MAP) Pulse Ox O2 Delivery O2 Flow Rate FiO2 04/23/17 07:32 Nasal Cannula 2.00 04/23/17 04:55 97.0 70 17 100/54 (69) 92 04/22/17 23:46 97.2 73 17 118/62 (80) 92 04/22/17 23:31 04/22/17 23:01 73 16 117/62 (80) 95 Nasal Cannula 2.00 04/22/17 20:42 94 Nasal Cannula 2.00 04/22/17 20:31 93 Nasal Cannula 2.00 04/22/17 20:31 70 17 110/71 (84) 93 Nasal Cannula 2.00 04/22/17 19:15 16 04/22/17 18:56 98.8 58 24 118/70 (86) 80 Room Air Physical Exam B/L LE: She has pain with any attempted range of motion of her bilateral lower extremities, she is able to freely move her ankle and distal digits as well as knee without pain, calf are soft and nontender, negative Homans sign, and an NVI Lumbar: No specific areas of palpable tenderness noted at this time, range of motion is not tested secondary to pain from pelvis No other signs of muscular skeletal injuries at this time Laboratory Laboratory Tests Test 04/22/17 20:25 04/22/17 21:43 04/23/17 06:30 White Blood Count 9.7 8.7 Red Blood Count 4.08 3.93 Hemoglobin 11.6 11.4 Hematocrit 35.2 34.0 Mean Corpuscular Volume 86.2 86.6 Mean Corpuscular Hemoglobin 28.5 29.1 Mean Corpuscular Hemoglobin Concent 33.0 33.6 Red Cell Distribution Width 15.1 15.4 Platelet Count 133 113 Mean Platelet Volume 8.6 9.0 Neutrophils (%) (Auto) 80.0 61.5 Lymphocytes (%) (Auto) 13.1 25.4 Monocytes (%) (Auto) 5.0 5.2 Eosinophils (%) (Auto) 1.7 7.5 Basophils (%) (Auto) 0.2 0.4 Neutrophils # (Auto) 7.7 5.3 Lymphocytes # (Auto) 1.3 2.2 Monocytes # (Auto) 0.5 0.5 Eosinophils # (Auto) 0.2 0.6 Basophils # (Auto) 0.0 0.0 CBC Comment DIFF FINAL DIFF FINAL Differential Comment Prothrombin Time 11.6 Prothromb Time International Ratio 1.0 Activated Partial Thromboplast Time 23.6 Blood Urea Nitrogen 12 14 Creatinine 0.69 0.59 Random Glucose 124 91 Calcium Level 8.3 7.7 Magnesium Level 1.9 Sodium Level 141 139 Potassium Level 3.8 3.4 Chloride Level 106 106 Carbon Dioxide Level 25.3 26.6 Anion Gap 10 6 Estimat Glomerular Filtration Rate 82 98 Total Creatine Kinase 142 Creatine Kinase MB 1.8 Troponin I LESS THAN 0.02 Blood Gas Puncture Site RN IV Blood Gas Patient Temperature 98.6 Venous Blood pH 7.44 Venous Blood Partial Pressure CO2 38 Venous Blood Partial Pressure O2 43 Venous Blood HCO3 25 Venous Blood Oxygen Saturation 78 Venous Blood Oxygen Content 12.3 Venous Blood Base Excess 1.6 Oxygen Delivery Device NASAL CANNULA Blood Gas Liter Flow 2 Albumin 3.0 Aspartate Amino Transf (AST/SGOT) 16 (Sofia Donnelly) Result Diagram: 04/23/1730 04/22/172024 Imaging Last 48 hours Impressions Chest X-Ray 04/22/171957 Signed Impressions: Service Date/Time: Saturday, April 22, 2017 20:51 - CONCLUSION: 1. Cardiomegaly. 2. Mild pulmonary vascular congestion bilaterally. 3. Degenerative changes and scoliosis of the thoracolumbar spine. Brian Freeman MD Thoracic Spine CT 04/22/17 Signed Impressions: Service Date/Time: Saturday, April 22, 2017 21:22 - CONCLUSION: 1. Acute mild compression deformity involving the superior end plate of L1 with 5 mm of retropulsion of the posterior superior aspect of the vertebral body which results in minimal effacement of the anterior thecal sac but no spinal stenosis. 2. Probable mild chronic compression deformities involving T1 and T4. 3. Degenerative changes and scoliosis of the thoracic spine. 4. Coronary artery calcifications. 5. Diffuse interstitial infiltrates predominantly posteriorly consistent with acute or chronic interstitial disease. Brian Freeman MD Lumbar Spine CT 04/22/17 Signed Impressions: Service Date/Time: Saturday, April 22, 2017 21:22 - CONCLUSION: 1. Acute comminuted fracture involving the left sacrum. 2. Acute mild compression deformities involving the superior end plates of L1 and L2 with minimal retropulsion of the posterior superior vertebral bodies measuring 5 mm at L1 and 3 mm at L2 but resulting in no significant spinal stenoses at these levels. 3. Moderate circumferential spinal stenosis and bilateral foraminal narrowing at L5-S1 secondary to diffuse disc bulge, facet joint hypertrophy and ligamentous laxity . 4. Multiple infrarenal abdominal aortic aneurysms with the largest noted distally and measuring 3.2 cm in greatest transverse dimension. 5. Diffuse osteoporosis of the lumbar spine. Brian Freeman MD Lower Extremity CT 04/22/17 Signed Impressions: Service Date/Time: Saturday, April 22, 2017 21:22 - CONCLUSION: 1. Acute comminuted fracture involving the left sacrum. 2. Acute fracture involving the left symphysis pubis. 3. Degenerative changes involving the left hip joint as well as sclerosis of the left femoral head suggesting possible osteonecrosis. 4. No acute fracture of the left proximal femur. 5. Old fracture involving the left inferior pubic ramus. Brian Freeman MD Hip and Pelvis X-Ray 04/22/17 Signed Impressions: Service Date/Time: Saturday, April 22, 2017 20:53 - CONCLUSION: 1. Questionable subtle cortical irregularity involving the subcapital region of the left proximal femur raising the possibility of subtle fracture. Clinical correlation is recommended. 2. Acute left sacrum fracture. 3. Old fractures involving the left superior and inferior pubic rami. 4. Mild degenerative changes involving the left hip joint. 5. Degenerative changes involving the lower lumbar spine. Brian Freeman MD Head CT 04/22/17 0000 Signed Impressions: Service Date/Time: Saturday, April 22, 2017 21:19 - CONCLUSION: 1. Diffuse stable cerebral atrophy. 2. No acute intracranial abnormality. Brian Freeman MD Cervical Spine CT 04/22/17 0000 Signed Impressions: Service Date/Time: Saturday, April 22, 2017 21:19 - CONCLUSION: 1. No acute fracture or prevertebral soft tissue swelling. 2. Moderate left neural foraminal narrowing at C5-6 and C6-7. 3. Grade I anterolisthesis of C7 in relation to T1 and C4 and in relation to C5. 4. Cervical spondylosis at C5-6 and C6-7. 5. No bony spinal canal stenosis. Brian Freeman MD Course see medical record (Sofia Donnelly) Assessment & Plan Problem List: (1) Fall ICD Codes: W19.XXXA - Unspecified fall, initial encounter Status: Acute (2) Compression fracture of L1 lumbar vertebra ICD Codes: S32.010A - Wedge compression fracture of first lumbar vertebra, initial encounter for closed fracture Status: Acute Qualifiers: (3) Compression fracture of L2 lumbar vertebra ICD Codes: S32.020A - Wedge compression fracture of second lumbar vertebra, initial encounter for closed fracture Status: Acute Qualifiers: (4) Closed fracture of left side of symphysis pubis ICD Codes: S32.592A - Other specified fracture of left pubis, initial encounter for closed fracture Status: Acute Qualifiers: Qualified Codes: S32.592A - Other specified fracture of left pubis, initial encounter for closed fracture (5) Sacral fracture, closed ICD Codes: S32.10XA - Unspecified fracture of sacrum, initial encounter for closed fracture Status: Acute Qualifiers: Qualified Codes: S32.10XA - Unspecified fracture of sacrum, initial encounter for closed fracture Assessment and Plan S/P fall: left sacral fracture, compression of L1 vertebrae fracture, compression of L2 vertebrae fracture, left pubic symphysis fracture The findings were discussed with the patient. Dr Evaristo Riley has reviewed images and details of this case. Recommendations are given for non-operative management at this time. Progress physical therapy for mobilization and pain control. Weight bearing as tolerated. I offered her a TLSO brace, but she denied as she states she has virtually no back pain at this time. I also discussed the possibility of needing kyphoplasty in the future if she starts to have progressive back pain - this would be treated on an outpatient basis. Continue pain control. Recommended orthopedic follow up in 7-10 days. Further displacement of the fracture site may require fixation. The possibility of future surgical treatment was discussed with the patient in detail, the patient acknowledges full understanding. Orthopedic clear for discharge at this time. Would recommend home health care for PT/OT and gait training. Appreciate orthopedic involvement in patient's care. (Sofia Donnelly) Assessment and Plan The exam,history, and medical decision making described in the above note were [id number] the assistance of a mid-level provider. I reviewed and agree with the findings presented.0 (Evaristo Riley MD) Sofia Donnelly Apr 23, 2017 08:40 Evaristo Riley MD Apr 23, 2017 19:51
[2017-04-23 09:30] VITALS: O2SAT 93
[2017-04-23 12:00] VITALS: BP 120/60; PULSE 95; RESP 18; TEMP 96.3; O2SAT 95
--- NOTE | 2017-04-23 14:15 | HHI.PR ---
Subjective Remarks Follow up back pain. Patient states that her pain is better, but still having pain in the low back. No other complaints at this time. States that the morphine is not really helping, but is allergic "to about everything else". Doesn't know what pain meds she can take. Objective Vitals Vital Signs Date Time Temp Pulse Resp B/P (MAP) Pulse Ox O2 Delivery O2 Flow Rate FiO2 04/23/17 12:00 96.3 95 18 120/60 (80) 95 04/23/17 09:30 93 04/23/17 08:00 98.2 72 20 103/62 (76) 90 04/23/17 07:32 Nasal Cannula 2.00 04/23/17 04:55 97.0 70 17 100/54 (69) 92 04/22/17 23:46 97.2 73 17 118/62 (80) 92 04/22/17 23:31 04/22/17 23:01 73 16 117/62 (80) 95 Nasal Cannula 2.00 04/22/17 20:42 94 Nasal Cannula 2.00 04/22/17 20:31 93 Nasal Cannula 2.00 04/22/17 20:31 70 17 110/71 (84) 93 Nasal Cannula 2.00 04/22/17 19:15 16 04/22/17 18:56 98.8 58 24 118/70 (86) 80 Room Air I/O 04/22/17 04/22/17 04/22/17 04/23/17 04/23/17 04/23/17 07:00 15:00 23:00 07:00 15:00 23:00 Intake Total 0 ml Balance 0 ml Intake Oral 0 ml # Voids 1 # Bowel Movements 0 Result Diagram: 04/23/1730 04/23/17 0630 Imaging Last Impressions Chest X-Ray 04/22/171957 Signed Impressions: Service Date/Time: Saturday, April 22, 2017 20:51 - CONCLUSION: 1. Cardiomegaly. 2. Mild pulmonary vascular congestion bilaterally. 3. Degenerative changes and scoliosis of the thoracolumbar spine. Brian Freeman MD Thoracic Spine CT 04/22/17 0000 Signed Impressions: Service Date/Time: Saturday, April 22, 2017 21:22 - CONCLUSION: 1. Acute mild compression deformity involving the superior end plate of L1 with 5 mm of retropulsion of the posterior superior aspect of the vertebral body which results in minimal effacement of the anterior thecal sac but no spinal stenosis. 2. Probable mild chronic compression deformities involving T1 and T4. 3. Degenerative changes and scoliosis of the thoracic spine. 4. Coronary artery calcifications. 5. Diffuse interstitial infiltrates predominantly posteriorly consistent with acute or chronic interstitial disease. Brian Freeman MD Lumbar Spine CT 04/22/17 Signed Impressions: Service Date/Time: Saturday, April 22, 2017 21:22 - CONCLUSION: 1. Acute comminuted fracture involving the left sacrum. 2. Acute mild compression deformities involving the superior end plates of L1 and L2 with minimal retropulsion of the posterior superior vertebral bodies measuring 5 mm at L1 and 3 mm at L2 but resulting in no significant spinal stenoses at these levels. 3. Moderate circumferential spinal stenosis and bilateral foraminal narrowing at L5-S1 secondary to diffuse disc bulge, facet joint hypertrophy and ligamentous laxity . 4. Multiple infrarenal abdominal aortic aneurysms with the largest noted distally and measuring 3.2 cm in greatest transverse dimension. 5. Diffuse osteoporosis of the lumbar spine. Brian Freeman MD Lower Extremity CT 04/22/17 0000 Signed Impressions: Service Date/Time: Saturday, April 22, 2017 21:22 - CONCLUSION: 1. Acute comminuted fracture involving the left sacrum. 2. Acute fracture involving the left symphysis pubis. 3. Degenerative changes involving the left hip joint as well as sclerosis of the left femoral head suggesting possible osteonecrosis. 4. No acute fracture of the left proximal femur. 5. Old fracture involving the left inferior pubic ramus. Brian Freeman MD Hip and Pelvis X-Ray 04/22/17 Signed Impressions: Service Date/Time: Saturday, April 22, 2017 20:53 - CONCLUSION: 1. Questionable subtle cortical irregularity involving the subcapital region of the left proximal femur raising the possibility of subtle fracture. Clinical correlation is recommended. 2. Acute left sacrum fracture. 3. Old fractures involving the left superior and inferior pubic rami. 4. Mild degenerative changes involving the left hip joint. 5. Degenerative changes involving the lower lumbar spine. Brian Freeman MD Head CT 04/22/17 0000 Signed Impressions: Service Date/Time: Saturday, April 22, 2017 21:19 - CONCLUSION: 1. Diffuse stable cerebral atrophy. 2. No acute intracranial abnormality. Brian Freeman MD Cervical Spine CT 04/22/17 0000 Signed Impressions: Service Date/Time: Saturday, April 22, 2017 21:19 - CONCLUSION: 1. No acute fracture or prevertebral soft tissue swelling. 2. Moderate left neural foraminal narrowing at C5-6 and C6-7. 3. Grade I anterolisthesis of C7 in relation to T1 and C4 and in relation to C5. 4. Cervical spondylosis at C5-6 and C6-7. 5. No bony spinal canal stenosis. Brian Freeman MD Objective Remarks General: Elderly female in no acute distress. In a back brace. Heart: Regular rate and rhythm. No murmur. Lungs: Clear to auscultation bilaterally. No wheezes, rales, or rhonchi. Breathing is nonlabored. Abdomen: Soft, nontender, nondistended. Extremities: No lower extremity edema. Psych: Alert and oriented. Procedures None Urinary Catheter: No Vascular Central Line Catheter: No A/P Problem List: (1) Fall ICD Code: W19.XXXA - Unspecified fall, initial encounter Status: Acute (2) Sacral fracture, closed ICD Code: S32.10XA - Unspecified fracture of sacrum, initial encounter for closed fracture Status: Acute (3) Compression fracture of L1 lumbar vertebra ICD Code: S32.010A - Wedge compression fracture of first lumbar vertebra, initial encounter for closed fracture Status: Acute (4) Compression fracture of L2 lumbar vertebra ICD Code: S32.020A - Wedge compression fracture of second lumbar vertebra, initial encounter for closed fracture Status: Acute (5) Closed fracture of left side of symphysis pubis ICD Code: S32.592A - Other specified fracture of left pubis, initial encounter for closed fracture Status: Acute (6) COPD (chronic obstructive pulmonary disease) ICD Code: J44.9 - Chronic obstructive pulmonary disease, unspecified Status: Acute (7) Thrombocytopenia ICD Code: D69.6 - Thrombocytopenia, unspecified Assessment and Plan 1. Status post mechanical trip and fall with head trauma, no loss of consciousness: Head CT shows no acute change. CT of the cervical spine shows no fracture. 2. Left sacral fracture: Secondary to above. There is an acute comminuted fracture of the left sacrum. Appreciate orthopedic surgery recommendations. Continue pain control. 3. Left pubic fracture: Secondary to above. Continue pain control. 4. L1-L2 compression fracture: Continue pain control. Continue TLSO brace. 5. Pancytopenia: Platelets are trending down. Recheck labs in the morning. No apparent active bleeding at this time. 6. COPD with chronic respiratory failure: Stable. Not in acute exacerbation. Patient had transient hypoxia upon arrival with oxygen saturation of 80%. Currently stable on 2 L per nasal cannula. DuoNeb as needed. 7. DVT prophylaxis: Lovenox. Discharge Planning Possible discharge to SNF next 1-2 days if pain is controlled. Problem Qualifiers (1) Sacral fracture, closed: Qualified Codes: S32.10XA - Unspecified fracture of sacrum, initial encounter for closed fracture (2) Compression fracture of L1 lumbar vertebra: (3) Compression fracture of L2 lumbar vertebra: (4) Closed fracture of left side of symphysis pubis: Qualified Codes: S32.592A - Other specified fracture of left pubis, initial encounter for closed fracture (5) COPD (chronic obstructive pulmonary disease): Qualified Codes: J44.9 - Chronic obstructive pulmonary disease, unspecified Milton Bhatti MD Apr 23, 2017 14:15
--- NOTE | 2017-04-23 14:31 | EKG ---
Date Performed: 04/22/2017 Time Performed: 20:27:01 PTAGE: 82 years EKG: Sinus rhythm BORDERLINE LEFT AXIS DEVIATION POSSIBLE RIGHT VENTRICULAR CONDUCTION DELAY NONSPECIFIC ST & T-WAVE A BNORMALITY BORDERLINE ECG PREVIOUS TRACING : 07/07/2015 06.34 Compared to prior tracing no significant change DOCTOR: Jc Otero Interpretating Date/Time 04/23/2017 14:26:53
[2017-04-23 16:00] VITALS: BP 112/56; PULSE 98; RESP 16; TEMP 98.4; O2SAT 92
[2017-04-23] MEDS ORDERED: TEMA30CA PO (18:04)
[2017-04-23] MEDS ORDERED: LORA1TAB12 PO (18:04)
[2017-04-23] MEDS ORDERED: SYNT112T PO (18:04)
[2017-04-23 19:00] VITALS: BP 123/75; PULSE 84; RESP 18; TEMP 96.9; O2SAT 97
[2017-04-23] MEDS ORDERED: TEMAZEPAM 15 MG CAP PO PRN (19:30)
[2017-04-24] VITALS (7 sets, daily range): BP systolic 119–145; BP diastolic 55–79; PULSE 76–89; RESP 17–18; TEMP 95.6–100; O2SAT 90–98
[2017-04-24] MEDS: SODIUM CHLOR 0.9% 1000 ML INJ 1,000 ML IV SCH ×2 (04:54→14:54)
[2017-04-24] MEDS: MORPHINE SULFATE 4 MG/ML INJ IV PRN ×2 (06:09→16:32)
[2017-04-24 08:05] LABS: AUTOMATED NEUTROPHIL # 6.8 TH/MM3 (1.8-7.7); BASOPHIL % 0.4 % (0.0-2.0); EOSINOPHIL # 0.2 TH/MM3 (0-0.4); EOSINOPHIL % 2.4 % (0.0-4.0); HEMATOCRIT 29.7 % (35.0-46.0); HEMO FLAGS DIFF FINAL; LYMPH % 11.3 % (9.0-44.0); MEAN CELL VOLUME 84.4 FL (80.0-100.0); MEAN CORPUSCULAR HEMOGLOBIN 29.2 PG (27.0-34.0); MEAN CORPUSCULAR HGB CONC 34.7 % (32.0-36.0); MONO % 5.4 % (0.0-8.0); NEUT % 80.5 % (16.0-70.0); PLATELET COUNT 102 TH/MM3 (150-450); RED BLOOD COUNT 3.52 MIL/MM3 (4.00-5.30); RED CELL DISTRIBUTION WIDTH 15.5 % (11.6-17.2); WHITE BLOOD COUNT 8.4 TH/MM3 (4.0-11.0)
[2017-04-24] MEDS: SODIUM CHLORIDE 0.9% FLUSH 10 ML FLUSH IV FLUSH SCH ×2 (08:06→21:48)
[2017-04-24] MEDS: ENOXAPARIN SODIUM 40 MG/0.4 ML SYRINGE SQ SCH (08:06)
[2017-04-24] MEDS: DOCUSATE SODIUM 50 MG/SENNA 8.6 MG TAB PO SCH ×2 (08:06→21:47)
[2017-04-24 08:21] LABS: BICARBONATE 23.4 MEQ/L (21.0-32.0); POTASSIUM 3.6 MEQ/L (3.5-5.1)
--- NOTE | 2017-04-24 13:57 | HHI.PR ---
Subjective Remarks Follow-up back pain. Patient states that she is still having pain. Overall she states that she does not feel well today. She reports constipation. She has had flatus, but no bowel movements. Objective Vitals Vital Signs Date Time Temp Pulse Resp B/P (MAP) Pulse Ox O2 Delivery O2 Flow Rate FiO2 04/24/17 08:00 96.5 89 17 125/61 (82) 90 04/24/17 07:00 16 04/24/17 00:00 97.1 76 17 120/69 (86) 98 04/23/17 20:42 Nasal Cannula 2.00 04/23/17 19:00 96.9 84 18 123/75 (91) 97 04/23/17 16:00 98.4 98 16 112/56 (74) 92 I/O 04/23/17 04/23/17 04/23/17 04/24/17 04/24/17 04/24/17 07:00 15:00 23:00 07:00 15:00 23:00 Intake Total 0 ml 600 ml 480 ml Balance 0 ml 600 ml 480 ml Intake Oral 0 ml 600 ml 480 ml # Voids 1 1 2 # Bowel Movements 0 0 Result Diagram: 04/24/17 0711 04/24/17 0711 Imaging Last Impressions Chest X-Ray 04/22/171957 Signed Impressions: Service Date/Time: Saturday, April 22, 2017 20:51 - CONCLUSION: 1. Cardiomegaly. 2. Mild pulmonary vascular congestion bilaterally. 3. Degenerative changes and scoliosis of the thoracolumbar spine. Brian Freeman MD Thoracic Spine CT 04/22/17 0000 Signed Impressions: Service Date/Time: Saturday, April 22, 2017 21:22 - CONCLUSION: 1. Acute mild compression deformity involving the superior end plate of L1 with 5 mm of retropulsion of the posterior superior aspect of the vertebral body which results in minimal effacement of the anterior thecal sac but no spinal stenosis. 2. Probable mild chronic compression deformities involving T1 and T4. 3. Degenerative changes and scoliosis of the thoracic spine. 4. Coronary artery calcifications. 5. Diffuse interstitial infiltrates predominantly posteriorly consistent with acute or chronic interstitial disease. Brian Freeman MD Lumbar Spine CT 04/22/17 0000 Signed Impressions: Service Date/Time: Saturday, April 22, 2017 21:22 - CONCLUSION: 1. Acute comminuted fracture involving the left sacrum. 2. Acute mild compression deformities involving the superior end plates of L1 and L2 with minimal retropulsion of the posterior superior vertebral bodies measuring 5 mm at L1 and 3 mm at L2 but resulting in no significant spinal stenoses at these levels. 3. Moderate circumferential spinal stenosis and bilateral foraminal narrowing at L5-S1 secondary to diffuse disc bulge, facet joint hypertrophy and ligamentous laxity . 4. Multiple infrarenal abdominal aortic aneurysms with the largest noted distally and measuring 3.2 cm in greatest transverse dimension. 5. Diffuse osteoporosis of the lumbar spine. Brian Freeman MD Lower Extremity CT 04/22/17 0000 Signed Impressions: Service Date/Time: Saturday, April 22, 2017 21:22 - CONCLUSION: 1. Acute comminuted fracture involving the left sacrum. 2. Acute fracture involving the left symphysis pubis. 3. Degenerative changes involving the left hip joint as well as sclerosis of the left femoral head suggesting possible osteonecrosis. 4. No acute fracture of the left proximal femur. 5. Old fracture involving the left inferior pubic ramus. Brian Freeman MD Hip and Pelvis X-Ray 04/22/17 0000 Signed Impressions: Service Date/Time: Saturday, April 22, 2017 20:53 - CONCLUSION: 1. Questionable subtle cortical irregularity involving the subcapital region of the left proximal femur raising the possibility of subtle fracture. Clinical correlation is recommended. 2. Acute left sacrum fracture. 3. Old fractures involving the left superior and inferior pubic rami. 4. Mild degenerative changes involving the left hip joint. 5. Degenerative changes involving the lower lumbar spine. Brian Freeman MD Head CT 04/22/17 0000 Signed Impressions: Service Date/Time: Saturday, April 22, 2017 21:19 - CONCLUSION: 1. Diffuse stable cerebral atrophy. 2. No acute intracranial abnormality. Brian Freeman MD Cervical Spine CT 04/22/17 0000 Signed Impressions: Service Date/Time: Saturday, April 22, 2017 21:19 - CONCLUSION: 1. No acute fracture or prevertebral soft tissue swelling. 2. Moderate left neural foraminal narrowing at C5-6 and C6-7. 3. Grade I anterolisthesis of C7 in relation to T1 and C4 and in relation to C5. 4. Cervical spondylosis at C5-6 and C6-7. 5. No bony spinal canal stenosis. Brian Freeman MD Objective Remarks General: Elderly female in no acute distress. Heart: Regular rate and rhythm. No murmur. Lungs: Clear to auscultation bilaterally. No wheezes, rales, or rhonchi. Breathing is nonlabored. Abdomen: Soft, nontender, nondistended. Positive bowel sounds. Extremities: No lower extremity edema. Psych: Alert and oriented. Procedures None Urinary Catheter: No Vascular Central Line Catheter: No A/P Problem List: (1) Fall ICD Code: W19.XXXA - Unspecified fall, initial encounter Status: Acute (2) Sacral fracture, closed ICD Code: S32.10XA - Unspecified fracture of sacrum, initial encounter for closed fracture Status: Acute (3) Compression fracture of L1 lumbar vertebra ICD Code: S32.010A - Wedge compression fracture of first lumbar vertebra, initial encounter for closed fracture Status: Acute (4) Compression fracture of L2 lumbar vertebra ICD Code: S32.020A - Wedge compression fracture of second lumbar vertebra, initial encounter for closed fracture Status: Acute (5) Closed fracture of left side of symphysis pubis ICD Code: S32.592A - Other specified fracture of left pubis, initial encounter for closed fracture Status: Acute (6) COPD (chronic obstructive pulmonary disease) ICD Code: J44.9 - Chronic obstructive pulmonary disease, unspecified Status: Acute (7) Thrombocytopenia ICD Code: D69.6 - Thrombocytopenia, unspecified Assessment and Plan 1. Status post mechanical trip and fall with head trauma, no loss of consciousness: Head CT shows no acute change. CT of the cervical spine shows no fracture. 2. Left sacral fracture: Secondary to above. There is an acute comminuted fracture of the left sacrum. Appreciate orthopedic surgery recommendations. Continue pain control. 3. Left pubic fracture: Secondary to above. Continue pain control. 4. L1-L2 compression fracture: Continue pain control. Continue TLSO brace. 5. Pancytopenia: Platelets are trending down. Recheck labs in the morning. No apparent active bleeding at this time. 6. COPD with chronic respiratory failure: Stable. Not in acute exacerbation. Patient had transient hypoxia upon arrival with oxygen saturation of 80%. Currently stable on 2 L per nasal cannula. DuoNeb as needed. 7. Constipation: Continue bowel regimen. 8. DVT prophylaxis: Lovenox. Discharge Planning Possible discharge to SNF tomorrow. Problem Qualifiers (1) Sacral fracture, closed: Qualified Codes: S32.10XA - Unspecified fracture of sacrum, initial encounter for closed fracture (2) Compression fracture of L1 lumbar vertebra: (3) Compression fracture of L2 lumbar vertebra: (4) Closed fracture of left side of symphysis pubis: Qualified Codes: S32.592A - Other specified fracture of left pubis, initial encounter for closed fracture (5) COPD (chronic obstructive pulmonary disease): Qualified Codes: J44.9 - Chronic obstructive pulmonary disease, unspecified Milton Bhatti MD Apr 24, 2017 13:57
[2017-04-25] MEDS: SODIUM CHLOR 0.9% 1000 ML INJ 1,000 ML IV SCH ×3 (00:54→20:54)
[2017-04-25] MEDS: MORPHINE SULFATE 4 MG/ML INJ IV PRN ×3 (02:35→15:42)
[2017-04-25 03:50] VITALS: BP 109/61; PULSE 84; RESP 18; TEMP 98.2; O2SAT 92
[2017-04-25 08:00] VITALS: BP 119/72; PULSE 68; RESP 17; TEMP 98.3; O2SAT 90
[2017-04-25] MEDS: DOCUSATE SODIUM 50 MG/SENNA 8.6 MG TAB PO SCH ×2 (09:20→21:55)
[2017-04-25] MEDS: ENOXAPARIN SODIUM 40 MG/0.4 ML SYRINGE SQ SCH (09:22)
[2017-04-25] MEDS: SODIUM CHLORIDE 0.9% FLUSH 10 ML FLUSH IV FLUSH SCH ×2 (09:28→22:01)
[2017-04-25 12:00] VITALS: BP 126/73; PULSE 79; RESP 18; TEMP 95.4; O2SAT 91
--- NOTE | 2017-04-25 14:18 | HHI.PR ---
Subjective Remarks Follow up back pain. Patient states that her back pain is "excruciating". Does not feel much better today. Not ready to go to SNF. Objective Vitals Vital Signs Date Time Temp Pulse Resp B/P (MAP) Pulse Ox O2 Delivery O2 Flow Rate FiO2 04/25/17 08:00 98.3 68 17 119/72 (88) 90 04/25/17 03:50 98.2 84 18 109/61 (77) 92 04/24/17 23:35 100.0 84 18 134/67 (89) 92 04/24/17 22:31 93 Nasal Cannula 2.00 04/24/17 21:00 98.5 87 17 125/69 (87) 93 04/24/17 16:38 17 04/24/17 16:00 95.6 81 17 145/79 (101) 91 04/24/17 15:00 Nasal Cannula 2.00 I/O 04/24/17 04/24/17 04/24/17 04/25/17 04/25/17 04/25/17 07:00 15:00 23:00 07:00 15:00 23:00 Intake Total 240 ml 240 ml Balance 240 ml 240 ml Intake Oral 240 ml 240 ml # Voids 2 3 # Bowel Movements 0 0 Result Diagram: 04/24/1711 04/24/17710 Imaging Last Impressions Chest X-Ray 04/22/171957 Signed Impressions: Service Date/Time: Saturday, April 22, 2017 20:51 - CONCLUSION: 1. Cardiomegaly. 2. Mild pulmonary vascular congestion bilaterally. 3. Degenerative changes and scoliosis of the thoracolumbar spine. Brian Freeman MD Thoracic Spine CT 04/22/17 0000 Signed Impressions: Service Date/Time: Saturday, April 22, 2017 21:22 - CONCLUSION: 1. Acute mild compression deformity involving the superior end plate of L1 with 5 mm of retropulsion of the posterior superior aspect of the vertebral body which results in minimal effacement of the anterior thecal sac but no spinal stenosis. 2. Probable mild chronic compression deformities involving T1 and T4. 3. Degenerative changes and scoliosis of the thoracic spine. 4. Coronary artery calcifications. 5. Diffuse interstitial infiltrates predominantly posteriorly consistent with acute or chronic interstitial disease. Brian Freeman MD Lumbar Spine CT 04/22/17 0000 Signed Impressions: Service Date/Time: Saturday, April 22, 2017 21:22 - CONCLUSION: 1. Acute comminuted fracture involving the left sacrum. 2. Acute mild compression deformities involving the superior end plates of L1 and L2 with minimal retropulsion of the posterior superior vertebral bodies measuring 5 mm at L1 and 3 mm at L2 but resulting in no significant spinal stenoses at these levels. 3. Moderate circumferential spinal stenosis and bilateral foraminal narrowing at L5-S1 secondary to diffuse disc bulge, facet joint hypertrophy and ligamentous laxity . 4. Multiple infrarenal abdominal aortic aneurysms with the largest noted distally and measuring 3.2 cm in greatest transverse dimension. 5. Diffuse osteoporosis of the lumbar spine. Brian Freeman MD Lower Extremity CT 04/22/17 Signed Impressions: Service Date/Time: Saturday, April 22, 2017 21:22 - CONCLUSION: 1. Acute comminuted fracture involving the left sacrum. 2. Acute fracture involving the left symphysis pubis. 3. Degenerative changes involving the left hip joint as well as sclerosis of the left femoral head suggesting possible osteonecrosis. 4. No acute fracture of the left proximal femur. 5. Old fracture involving the left inferior pubic ramus. Brian Freeman MD Hip and Pelvis X-Ray 04/22/17 Signed Impressions: Service Date/Time: Saturday, April 22, 2017 20:53 - CONCLUSION: 1. Questionable subtle cortical irregularity involving the subcapital region of the left proximal femur raising the possibility of subtle fracture. Clinical correlation is recommended. 2. Acute left sacrum fracture. 3. Old fractures involving the left superior and inferior pubic rami. 4. Mild degenerative changes involving the left hip joint. 5. Degenerative changes involving the lower lumbar spine. Brian Freeman MD Head CT 04/22/17 0000 Signed Impressions: Service Date/Time: Saturday, April 22, 2017 21:19 - CONCLUSION: 1. Diffuse stable cerebral atrophy. 2. No acute intracranial abnormality. Brian Freeman MD Cervical Spine CT 04/22/17 0000 Signed Impressions: Service Date/Time: Saturday, April 22, 2017 21:19 - CONCLUSION: 1. No acute fracture or prevertebral soft tissue swelling. 2. Moderate left neural foraminal narrowing at C5-6 and C6-7. 3. Grade I anterolisthesis of C7 in relation to T1 and C4 and in relation to C5. 4. Cervical spondylosis at C5-6 and C6-7. 5. No bony spinal canal stenosis. Brian Freeman MD Objective Remarks General: Elderly female in no acute distress. Sitting up in a chair. Wearing TLSO brace. Heart: Regular rate and rhythm. No murmur. Lungs: Clear to auscultation bilaterally. No wheezes, rales, or rhonchi. Breathing is nonlabored. Abdomen: Soft, nontender, nondistended. Positive bowel sounds. Extremities: No lower extremity edema. Psych: Alert and oriented. Procedures None Urinary Catheter: No Vascular Central Line Catheter: No A/P Problem List: (1) Fall ICD Code: W19.XXXA - Unspecified fall, initial encounter Status: Acute (2) Sacral fracture, closed ICD Code: S32.10XA - Unspecified fracture of sacrum, initial encounter for closed fracture Status: Acute (3) Compression fracture of L1 lumbar vertebra ICD Code: S32.010A - Wedge compression fracture of first lumbar vertebra, initial encounter for closed fracture Status: Acute (4) Compression fracture of L2 lumbar vertebra ICD Code: S32.020A - Wedge compression fracture of second lumbar vertebra, initial encounter for closed fracture Status: Acute (5) Closed fracture of left side of symphysis pubis ICD Code: S32.592A - Other specified fracture of left pubis, initial encounter for closed fracture Status: Acute (6) COPD (chronic obstructive pulmonary disease) ICD Code: J44.9 - Chronic obstructive pulmonary disease, unspecified Status: Acute (7) Thrombocytopenia ICD Code: D69.6 - Thrombocytopenia, unspecified Assessment and Plan 1. Status post mechanical trip and fall with head trauma, no loss of consciousness: Head CT shows no acute change. CT of the cervical spine shows no fracture. 2. Left sacral fracture: Secondary to above. There is an acute comminuted fracture of the left sacrum. Appreciate orthopedic surgery recommendations. Continue pain control. 3. Left pubic fracture: Secondary to above. Continue pain control. 4. L1-L2 compression fracture: Continue pain control. Continue TLSO brace. 5. Pancytopenia: Platelets are trending down. Recheck labs in the morning. No apparent active bleeding at this time. 6. COPD with chronic respiratory failure: Stable. Not in acute exacerbation. Patient had transient hypoxia upon arrival with oxygen saturation of 80%. Currently stable on 2 L per nasal cannula. DuoNeb as needed. 7. Constipation: Continue bowel regimen. 8. DVT prophylaxis: Lovenox. Discharge Planning Plan for discharge to SNF when pain control is improved. Problem Qualifiers (1) Sacral fracture, closed: Qualified Codes: S32.10XA - Unspecified fracture of sacrum, initial encounter for closed fracture (2) Compression fracture of L1 lumbar vertebra: (3) Compression fracture of L2 lumbar vertebra: (4) Closed fracture of left side of symphysis pubis: Qualified Codes: S32.592A - Other specified fracture of left pubis, initial encounter for closed fracture (5) COPD (chronic obstructive pulmonary disease): Qualified Codes: J44.9 - Chronic obstructive pulmonary disease, unspecified Milton Bhatti MD Apr 25, 2017 14:18
[2017-04-25 16:00] VITALS: BP 118/64; PULSE 57; RESP 17; TEMP 96.4; O2SAT 91
[2017-04-25 20:10] VITALS: BP 135/73; PULSE 87; RESP 20; TEMP 96.5; O2SAT 94
[2017-04-25 23:40] VITALS: BP 98/52; PULSE 89; RESP 18; TEMP 97.6; O2SAT 96
[2017-04-26] VITALS: BP 140/79; PULSE 68; RESP 18; TEMP 98.2; O2SAT 93
[2017-04-26] MEDS: SODIUM CHLOR 0.9% 1000 ML INJ 1,000 ML IV SCH ×2 (01:15→22:09)
[2017-04-26] MEDS: MORPHINE SULFATE 4 MG/ML INJ IV PRN ×3 (01:15→09:56)
[2017-04-26 04:10] VITALS: BP 131/60; PULSE 66; RESP 17; TEMP 97.1; O2SAT 95
[2017-04-26 08:00] VITALS: BP 111/61; PULSE 64; RESP 20; TEMP 96.4; O2SAT 94
[2017-04-26] MEDS: ENOXAPARIN SODIUM 40 MG/0.4 ML SYRINGE SQ SCH (09:55)
[2017-04-26] MEDS: DOCUSATE SODIUM 50 MG/SENNA 8.6 MG TAB PO SCH ×2 (09:55→22:10)
[2017-04-26] MEDS: SODIUM CHLORIDE 0.9% FLUSH 10 ML FLUSH IV FLUSH SCH ×2 (09:56→22:10)
--- NOTE | 2017-04-26 11:08 | HHI.PR ---
Subjective Remarks Follow up back pain. Patient states that her back pain is not any better today. She reports pain in her pelvic region in the area where she had surgery recently and is requesting gynecology consult. She also reports that her urine is foul smelling. She has had increased urinary frequency. Objective Vitals Vital Signs Date Time Temp Pulse Resp B/P (MAP) Pulse Ox O2 Delivery O2 Flow Rate FiO2 04/26/17 08:00 96.4 64 20 111/61 (78) 94 04/26/17 04:10 97.1 66 17 131/60 (83) 95 04/26/17 00:00 98.2 68 18 140/79 (99) 93 04/25/17 23:40 97.6 89 18 98/52 (67) 96 04/25/17 20:10 96.5 87 20 135/73 (93) 94 04/25/17 16:00 96.4 57 17 118/64 (82) 91 04/25/17 12:00 95.4 79 18 126/73 (90) 91 I/O 04/25/17 04/25/17 04/25/17 04/26/17 04/26/17 04/26/17 07:00 15:00 23:00 07:00 15:00 23:00 Intake Total 860 ml 360 ml 480 ml Balance 860 ml 360 ml 480 ml Intake Oral 860 ml 360 ml 480 ml # Voids 6 2 3 # Bowel Movements 0 0 0 Result Diagram: 04/24/17 0711 04/24/17 0711 Imaging Last Impressions Chest X-Ray 04/22/17 195 Signed Impressions: Service Date/Time: Saturday, April 22, 2017 20:51 - CONCLUSION: 1. Cardiomegaly. 2. Mild pulmonary vascular congestion bilaterally. 3. Degenerative changes and scoliosis of the thoracolumbar spine. Brian Freeman MD Thoracic Spine CT 04/22/17 0000 Signed Impressions: Service Date/Time: Saturday, April 22, 2017 21:22 - CONCLUSION: 1. Acute mild compression deformity involving the superior end plate of L1 with 5 mm of retropulsion of the posterior superior aspect of the vertebral body which results in minimal effacement of the anterior thecal sac but no spinal stenosis. 2. Probable mild chronic compression deformities involving T1 and T4. 3. Degenerative changes and scoliosis of the thoracic spine. 4. Coronary artery calcifications. 5. Diffuse interstitial infiltrates predominantly posteriorly consistent with acute or chronic interstitial disease. Brian Freeman MD Lumbar Spine CT 04/22/17 0000 Signed Impressions: Service Date/Time: Saturday, April 22, 2017 21:22 - CONCLUSION: 1. Acute comminuted fracture involving the left sacrum. 2. Acute mild compression deformities involving the superior end plates of L1 and L2 with minimal retropulsion of the posterior superior vertebral bodies measuring 5 mm at L1 and 3 mm at L2 but resulting in no significant spinal stenoses at these levels. 3. Moderate circumferential spinal stenosis and bilateral foraminal narrowing at L5-S1 secondary to diffuse disc bulge, facet joint hypertrophy and ligamentous laxity . 4. Multiple infrarenal abdominal aortic aneurysms with the largest noted distally and measuring 3.2 cm in greatest transverse dimension. 5. Diffuse osteoporosis of the lumbar spine. Brian Freeman MD Lower Extremity CT 04/22/17 0000 Signed Impressions: Service Date/Time: Saturday, April 22, 2017 21:22 - CONCLUSION: 1. Acute comminuted fracture involving the left sacrum. 2. Acute fracture involving the left symphysis pubis. 3. Degenerative changes involving the left hip joint as well as sclerosis of the left femoral head suggesting possible osteonecrosis. 4. No acute fracture of the left proximal femur. 5. Old fracture involving the left inferior pubic ramus. Brian Freeman MD Hip and Pelvis X-Ray 04/22/17 Signed Impressions: Service Date/Time: Saturday, April 22, 2017 20:53 - CONCLUSION: 1. Questionable subtle cortical irregularity involving the subcapital region of the left proximal femur raising the possibility of subtle fracture. Clinical correlation is recommended. 2. Acute left sacrum fracture. 3. Old fractures involving the left superior and inferior pubic rami. 4. Mild degenerative changes involving the left hip joint. 5. Degenerative changes involving the lower lumbar spine. Brian Freeman MD Head CT 04/22/17 0000 Signed Impressions: Service Date/Time: Saturday, April 22, 2017 21:19 - CONCLUSION: 1. Diffuse stable cerebral atrophy. 2. No acute intracranial abnormality. Brian Freeman MD Cervical Spine CT 04/22/17 0000 Signed Impressions: Service Date/Time: Mode, April 22, 2017 21:19 - CONCLUSION: 1. No acute fracture or prevertebral soft tissue swelling. 2. Moderate left neural foraminal narrowing at C5-6 and C6-7. 3. Grade I anterolisthesis of C7 in relation to T1 and C4 and in relation to C5. 4. Cervical spondylosis at C5-6 and C6-7. 5. No bony spinal canal stenosis. Brian Freeman MD Objective Remarks General: Elderly female in no acute distress. Sitting up in a chair. Wearing TLSO brace. Heart: Regular rate and rhythm. No murmur. Lungs: Clear to auscultation bilaterally. No wheezes, rales, or rhonchi. Breathing is nonlabored. Abdomen: Soft, nontender, nondistended. Positive bowel sounds. Extremities: No lower extremity edema. Psych: Alert and oriented. Procedures None Urinary Catheter: No Vascular Central Line Catheter: No A/P Problem List: (1) Fall ICD Code: W19.XXXA - Unspecified fall, initial encounter Status: Acute (2) Sacral fracture, closed ICD Code: S32.10XA - Unspecified fracture of sacrum, initial encounter for closed fracture Status: Acute (3) Compression fracture of L1 lumbar vertebra ICD Code: S32.010A - Wedge compression fracture of first lumbar vertebra, initial encounter for closed fracture Status: Acute (4) Compression fracture of L2 lumbar vertebra ICD Code: S32.020A - Wedge compression fracture of second lumbar vertebra, initial encounter for closed fracture Status: Acute (5) Closed fracture of left side of symphysis pubis ICD Code: S32.592A - Other specified fracture of left pubis, initial encounter for closed fracture Status: Acute (6) COPD (chronic obstructive pulmonary disease) ICD Code: J44.9 - Chronic obstructive pulmonary disease, unspecified Status: Acute (7) Thrombocytopenia ICD Code: D69.6 - Thrombocytopenia, unspecified Assessment and Plan 04/26/17: Will notify orthopedic surgery of ongoing pain. Consult gynecology for evaluation of recent surgery. Check UA to evaluate for UTI. 1. Status post mechanical trip and fall with head trauma, no loss of consciousness: Head CT shows no acute change. CT of the cervical spine shows no fracture. 2. Left sacral fracture: Secondary to above. There is an acute comminuted fracture of the left sacrum. Appreciate orthopedic surgery recommendations. Continue pain control. 3. Left pubic fracture: Secondary to above. Continue pain control. 4. L1-L2 compression fracture: Continue pain control. Continue TLSO brace. 5. Pancytopenia: Platelets are trending down. Recheck labs in the morning. No apparent active bleeding at this time. 6. COPD with chronic respiratory failure: Stable. Not in acute exacerbation. Oxygen requirement increased to 4L today. Duoneb as needed. 7. Constipation: Continue bowel regimen. 8. DVT prophylaxis: Lovenox. Discharge Planning Plan for discharge to SNF when pain control is improved. Problem Qualifiers (1) Sacral fracture, closed: Qualified Codes: S32.10XA - Unspecified fracture of sacrum, initial encounter for closed fracture (2) Compression fracture of L1 lumbar vertebra: (3) Compression fracture of L2 lumbar vertebra: (4) Closed fracture of left side of symphysis pubis: Qualified Codes: S32.592A - Other specified fracture of left pubis, initial encounter for closed fracture (5) COPD (chronic obstructive pulmonary disease): Qualified Codes: J44.9 - Chronic obstructive pulmonary disease, unspecified Milton Bhatti MD Apr 26, 2017 11:08
[2017-04-26] MEDS ORDERED: PILL SPLITTER OTHER PRN (11:15)
[2017-04-26 12:00] VITALS: BP 109/56; PULSE 74; RESP 20; TEMP 96.8; O2SAT 96
[2017-04-26] MEDS ORDERED: MORPHINE SULFATE 4 MG/ML INJ IV PRN (14:00)
--- NOTE | 2017-04-26 15:17 | PD.CONS ---
HPI Chief Complaint "my urine smells" Date Seen: Apr 26, 2017 (Sid Narvaez MD R1) Travel History International Travel<30 Days: No Contact w/Intl Traveler<30Days: No Known Affected Area: No (Sid Narvaez MD R1) History of Present Illness HPI Consulted for an 82 year old female for pain in her pelvic are and recently had a "manager learning surgery" who is currently inpatient for multiple fractures following a fall. The patient states that recently had an abscess on the outside of her vagina, on the vulva, which was treated with antibiotics. The area was biopsied and had "squamous cell carcinoma" which she had a surgery for on 04/18. She does not recall the details of the surgery, but notes it was performed on the outside of her vagina, somewhere on her vulva, and was performed at an outpatient surgical center. Currently notes a change in urine smell. Denies any bleeding or discharge from vagina, no pain/itching on urination or change in frequency/color. Notes some abdominal pain which she attributes to constipation. (Sid Narvaez MD R1) History Past Medical History Narrative Medical Obtained from EMR Anxiety, Depression, COPD, Hepatitis B and C and Hypothyroidism (Sid Narvaez MD R1) Obstetric History Obstetric History Recent illdefined "gynecologic surgery," occurred following reported biopsy positive for SCC in same day clinic on the vulva (Sid Narvaez MD R1) Past Surgical History Narrative Surgical Hernia Repair, Bilateral Cataract Surgery, Ovarian Cyst Removal, Right Hip Replacement, Tonsillectomy (Sid Narvaez MD R1) Allergies-Medications (Allergen,Severity, Reaction): Coded Allergies: Sulfa (Sulfonamide Antibiotics) (Unverified Allergy, Severe, RASH, 04/22/17 ) levothyroxine (Unverified Allergy, Severe, makes her sick, 04/22/17) levothyroxine sodium (Unverified Allergy, Severe, makes her sick, 04/22/17) sulfamethoxazole (Unverified Allergy, Severe, makes her sick, 04/22/17) trimethoprim (Unverified Allergy, Severe, makes her sick, 04/22/17) acetaminophen (Unverified Allergy, Intermediate, ITCHING, 04/22/17) hydrocodone (Unverified Allergy, Intermediate, ITCHING, 04/22/17) lansoprazole (Unverified Adverse Reaction, Severe, 04/22/17) GI UPSET tramadol (Unverified Adverse Reaction, Severe, Itching, 04/22/17) Home Meds Active Scripts Oxycodone-Acetaminophen 5-325 mg (Percocet 5-325 mg) 1 Tab, 1 TAB PO Q8HR Y for PAIN SCALE 1 TO 10, #15 TAB Prov:Carmel Cruz MD 02/10/16 Temazepam 30 mg (Restoril 30 mg) 30 Mg Cap, 1 CAP PO HS for 7 Days, CAP Prov:Lorenzo Bravo MD 12/18/14 Reported Medications Temazepam (Temazepam) 30 Mg Cap, 30 MG PO HS Y for INSOMNIA, CAP 0 Refills 04/23/17 Levothyroxine (Synthroid) 112 Mcg Tab, 112 MCG PO DAILY for Thyroid, #30 TAB 0 Refills 04/23/17 Lorazepam (Lorazepam) 1 Mg Tab, 1 MG PO DAILY Y for ANXIETY, TAB 0 Refills 04/23/17 [2ND Thyroid Med] No Conflict Check, PO DAILY 02/10/16 Synthroid 112 mcg (Synthroid 112 mcg) 112 Mcg Tab, 112 MCG PO DAILY, TAB 02/10/16 Lorazepam (Lorazepam) 1 Mg Tab, 1 MG PO BID Y for SLEEP, TAB 07/06/15 Review of Systems General / Constitutional: Weight Loss, No: Fever, Chills Eyes: No: Diploplia, Blurred Vision, Visual changes HENT: No: Headaches, Vertigo Cardiovascular: No: Irregular Rhythm, Chest Pain or Discomfort Respiratory: No: Cough, Short of Breath Gastrointestinal: Abdominal Pain (Attributed to constipation), No: Nausea, Vomiting Genitourinary: Pelvic Pain (Recent pelvic fracture), Other (change in urine color), No: Urgency, Frequency, Dysuria, Nocturia, Hematuria, Decreased Urinary Output, Oliguria, Hesitancy, Dribbling, Incontinence, Discharge, Vaginal Bleeding Musculoskeletal: No: Weakness, Cramping Skin: No Rash, No Itching, No Dryness (Sid Narvaez MD R1) Physical Exam Vital Signs Date Time Temp Pulse Resp B/P (MAP) Pulse Ox O2 Delivery O2 Flow Rate FiO2 04/26/17 08:00 96.4 64 20 111/61 (78) 94 04/26/17 04:10 97.1 66 17 131/60 (83) 95 04/26/17 00:00 98.2 68 18 140/79 (99) 93 04/25/17 23:40 97.6 89 18 98/52 (67) 96 04/25/17 20:10 96.5 87 20 135/73 (93) 94 04/25/17 16:00 96.4 57 17 118/64 (82) 91 Narrative GENERAL: Well-nourished, well-developed patient. SKIN: Warm and dry. HEAD: Normocephalic and atraumatic. EYES: No scleral icterus. No injection or drainage. ENT: No nasal drainage noted. Mucous membranes pink. Airway patent. NECK: Supple, trachea midline. No JVD. CARDIOVASCULAR: Regular rate and rhythm without murmurs, gallops, or rubs. RESPIRATORY: Breath sounds equal bilaterally. No accessory muscle use. ABDOMEN/GI: Abdomen soft, non-tender, bowel sounds present, no rebound, no guarding. No costovertebral tenderness GENITOURINARY: External Genitalia intact, inclusion cyst on left labia. Darkened skin on right labia. No healing lacerations or lesions. Introitus normal in appearance. Manual digital examination declined due to recent pubic fractures. EXTREMITIES: No cyanosis or edema. BACK: Nontender without obvious deformity. No CVA tenderness. NEUROLOGICAL: Awake and alert. Motor and sensory grossly within normal limits. Five out of 5 muscle strength in all muscle groups. Normal speech. (Sid Narvaez MD R1) Data Data Orders Orders Morphine Inj (Morphine Inj) (04/26/17 14:00) Morphine Ir (Msir) (04/26/17 11:00) Consult Gynecology (04/26/17 ) Urinalysis - C+S If Indicated (04/26/17 11:00) Specimen To Be Collected PRN (04/26/17 11:00) Pill Splitter (Pill Splitter) (04/26/17 11:15) (Hub Use Only)Inp Phy Cons/Ref (04/26/17 ) (Sid Narvaez MD R1) MDM Narrative Course / MDM 82 year old female with change in urine smell, pelvic pain and recent pubic fracture. Reported recent vulvar surgery with no evidence of recent surgery on physical examination. Recommend investigation and treatment of suspected UTI at this time. Will sign off at this time. Please reconsult for any further gynecologic concerns. Admitting diagnosis: sacrum fracture, pubic rami fracture, lumbar spine compression fx (Sid Narvaez MD R1) Attending Attestation Patient was seen and evaluated with residents on 04/26/17; from description suspect patient with procedure for possible CONNIE but no records available and patient very poor historian. Denies pelvic pain at this time, declined manager learning exam by attending but no obvious abnormalities on resident exam; may be urinary related, recommend UA, could consider starting antibiotics for "foul smelling urine," defer to primary team. No current manager learning issues, but will be happy to assist if further needs arise. Patient should follow up with primary (Seble Juan MD) Condition: Stable Sid Narvaez MD R1 Apr 26, 2017 15:17 Seble Juan MD Apr 27, 2017 08:40
[2017-04-26 16:00] VITALS: BP 115/61; PULSE 67; RESP 20; TEMP 97.1; O2SAT 95
[2017-04-26] MEDS: MORPHINE SULFATE 15 MG TAB PO PRN ×2 (17:05→23:47)
[2017-04-26 19:00] VITALS: BP 133/69; PULSE 65; RESP 17; TEMP 98.7; O2SAT 98
[2017-04-27] VITALS: BP 130/73; PULSE 74; RESP 16; TEMP 98; O2SAT 98
[2017-04-27 04:00] VITALS: BP 102/54; PULSE 59; RESP 16; TEMP 98.5; O2SAT 97
[2017-04-27] MEDS: MORPHINE SULFATE 15 MG TAB PO PRN ×2 (06:10→17:16)
--- NOTE | 2017-04-27 07:28 | PD.ORT.PN ---
Subjective Subjective Remarks S/P fall: left sacral fracture, compression of L1 vertebrae fracture, compression of L2 vertebrae fracture, left pubic symphysis fracture Pt states that she is having a 'bad day' and is in moderate pain - although she is having a conversation with me very calmly and casually. She states that the TLSO brace 'does not fit me' and she 'can't even wear it right now.' Awaiting discharge to rehab. Objective Vitals Vital Signs Date Time Temp Pulse Resp B/P (MAP) Pulse Ox O2 Delivery O2 Flow Rate FiO2 04/27/17 04:00 98.5 59 16 102/54 (70) 97 04/27/17 00:00 98.0 74 16 130/73 (92) 98 04/26/17 19:00 98.7 65 17 133/69 (90) 98 04/26/17 16:00 97.1 67 20 115/61 (79) 95 04/26/17 12:00 96.8 74 20 109/56 (73) 96 04/26/17 08:00 96.4 64 20 111/61 (78) 94 I/O 04/26/17 04/26/17 04/26/17 04/27/17 04/27/17 04/27/17 07:00 15:00 23:00 07:00 15:00 23:00 Intake Total 480 ml 480 ml 480 ml 480 ml Balance 480 ml 480 ml 480 ml 480 ml Intake Oral 480 ml 480 ml 480 ml 480 ml # Voids 3 3 3 4 # Bowel Movements 0 1 0 0 Result Diagram: 04/24/1711 04/24/17710 Imaging Last Impressions Chest X-Ray 04/22/171957 Signed Impressions: Service Date/Time: Saturday, April 22, 2017 20:51 - CONCLUSION: 1. Cardiomegaly. 2. Mild pulmonary vascular congestion bilaterally. 3. Degenerative changes and scoliosis of the thoracolumbar spine. Brian Freeman MD Thoracic Spine CT 04/22/17 0000 Signed Impressions: Service Date/Time: Saturday, April 22, 2017 21:22 - CONCLUSION: 1. Acute mild compression deformity involving the superior end plate of L1 with 5 mm of retropulsion of the posterior superior aspect of the vertebral body which results in minimal effacement of the anterior thecal sac but no spinal stenosis. 2. Probable mild chronic compression deformities involving T1 and T4. 3. Degenerative changes and scoliosis of the thoracic spine. 4. Coronary artery calcifications. 5. Diffuse interstitial infiltrates predominantly posteriorly consistent with acute or chronic interstitial disease. Brian Freeman MD Lumbar Spine CT 04/22/17 0000 Signed Impressions: Service Date/Time: Saturday, April 22, 2017 21:22 - CONCLUSION: 1. Acute comminuted fracture involving the left sacrum. 2. Acute mild compression deformities involving the superior end plates of L1 and L2 with minimal retropulsion of the posterior superior vertebral bodies measuring 5 mm at L1 and 3 mm at L2 but resulting in no significant spinal stenoses at these levels. 3. Moderate circumferential spinal stenosis and bilateral foraminal narrowing at L5-S1 secondary to diffuse disc bulge, facet joint hypertrophy and ligamentous laxity . 4. Multiple infrarenal abdominal aortic aneurysms with the largest noted distally and measuring 3.2 cm in greatest transverse dimension. 5. Diffuse osteoporosis of the lumbar spine. Brian Freeman MD Lower Extremity CT 04/22/17 0000 Signed Impressions: Service Date/Time: Saturday, April 22, 2017 21:22 - CONCLUSION: 1. Acute comminuted fracture involving the left sacrum. 2. Acute fracture involving the left symphysis pubis. 3. Degenerative changes involving the left hip joint as well as sclerosis of the left femoral head suggesting possible osteonecrosis. 4. No acute fracture of the left proximal femur. 5. Old fracture involving the left inferior pubic ramus. Brian Freeman MD Hip and Pelvis X-Ray 04/22/17 Signed Impressions: Service Date/Time: Saturday, April 22, 2017 20:53 - CONCLUSION: 1. Questionable subtle cortical irregularity involving the subcapital region of the left proximal femur raising the possibility of subtle fracture. Clinical correlation is recommended. 2. Acute left sacrum fracture. 3. Old fractures involving the left superior and inferior pubic rami. 4. Mild degenerative changes involving the left hip joint. 5. Degenerative changes involving the lower lumbar spine. Brian Freeman MD Head CT 04/22/17 0000 Signed Impressions: Service Date/Time: Saturday, April 22, 2017 21:19 - CONCLUSION: 1. Diffuse stable cerebral atrophy. 2. No acute intracranial abnormality. Brian Freeman MD Cervical Spine CT 04/22/17 0000 Signed Impressions: Service Date/Time: Saturday, April 22, 2017 21:19 - CONCLUSION: 1. No acute fracture or prevertebral soft tissue swelling. 2. Moderate left neural foraminal narrowing at C5-6 and C6-7. 3. Grade I anterolisthesis of C7 in relation to T1 and C4 and in relation to C5. 4. Cervical spondylosis at C5-6 and C6-7. 5. No bony spinal canal stenosis. Brian Freeman MD Objective Remarks B/L LE: She has mild pain with any attempted range of motion of her bilateral lower extremities, she is able to freely move her ankle and distal digits as well as knee without pain, she is able to perform B/L SLR with mild pain - no neurological signs/symptoms, calf are soft and nontender, negative Homans sign, and an NVI Lumbar: Palpable tenderness noted around mid-back, range of motion is not tested secondary to pain, NVI distally. No other signs of muscular skeletal injuries at this time Assessment & Plan Problem List: (1) Fall ICD Codes: W19.XXXA - Unspecified fall, initial encounter Status: Acute (2) Compression fracture of L1 lumbar vertebra ICD Codes: S32.010A - Wedge compression fracture of first lumbar vertebra, initial encounter for closed fracture Status: Acute Qualifiers: (3) Compression fracture of L2 lumbar vertebra ICD Codes: S32.020A - Wedge compression fracture of second lumbar vertebra, initial encounter for closed fracture Status: Acute Qualifiers: (4) Closed fracture of left side of symphysis pubis ICD Codes: S32.592A - Other specified fracture of left pubis, initial encounter for closed fracture Status: Acute Qualifiers: Qualified Codes: S32.592A - Other specified fracture of left pubis, initial encounter for closed fracture (5) Sacral fracture, closed ICD Codes: S32.10XA - Unspecified fracture of sacrum, initial encounter for closed fracture Status: Acute Qualifiers: Qualified Codes: S32.10XA - Unspecified fracture of sacrum, initial encounter for closed fracture Assessment and Plan S/P fall: left sacral fracture, compression of L1 vertebrae fracture, compression of L2 vertebrae fracture, left pubic symphysis fracture Ortho status stable at this time. Care continues to be non-surgical from an orthopedic standpoint. Will consult orthotech to refit TLSO brace for her - some adjustments may be needed. I would still recommend possible evaluation for a one or two level kyphoplasty on an outpatient basis. If patient's back pain is not improving and patient is persistent, would consider consulting interventional radiology for evaluation of kyphoplasty during hospital stay. Ultimately a good outcome is expected from an orthopedic standpoint. Continue pain control, brace wear and physical therapy. Clear for discharge from an orthopedic standpoint. Follow up with Dr Riley or myself in 10 days after discharge. Sofia Donnelly Apr 27, 2017 07:28
[2017-04-27 08:00] VITALS: BP 120/60; PULSE 61; RESP 17; TEMP 95.2; O2SAT 95
[2017-04-27] MEDS: DOCUSATE SODIUM 50 MG/SENNA 8.6 MG TAB PO SCH (09:00)
[2017-04-27] MEDS: SODIUM CHLORIDE 0.9% FLUSH 10 ML FLUSH IV FLUSH SCH (09:00)
[2017-04-27] MEDS: ENOXAPARIN SODIUM 40 MG/0.4 ML SYRINGE SQ SCH (10:05)
[2017-04-27] MEDS ORDERED: SODIUM CHLOR 0.9% 1000 ML INJ 1,000 ML OTHER PRN (11:59)
[2017-04-27 12:00] VITALS: BP 118/55; PULSE 74; RESP 17; TEMP 97.1; O2SAT 95
[2017-04-27] MEDS ORDERED: MISOPROSTOL 25 MCG SUPP VAGINAL ONE (12:00)
[2017-04-27] MEDS ORDERED: SODIUM CHLORIDE 0.9% FLUSH 10 ML FLUSH IV FLUSH PRN (12:00)
[2017-04-27 12:30] VITALS: O2SAT 95
[2017-04-27] MEDS ORDERED: LORA-373 PO (13:16)
[2017-04-27] MEDS ORDERED: MSIR15 PO (13:16)
[2017-04-27] MEDS ORDERED: SENN1TAB PO (13:17)
--- NOTE | 2017-04-27 13:21 | HHI.PR ---
Subjective Remarks Follow up back pain. Patient is sitting on the edge of the bed talking on the phone when I arrive. She appears very comfortable and is smiling. As soon as I ask about her pain, she grimaces and describes the pain as severe. Objective Vitals Vital Signs Date Time Temp Pulse Resp B/P (MAP) Pulse Ox O2 Delivery O2 Flow Rate FiO2 04/27/17 08:00 95.2 61 17 120/60 (80) 95 04/27/17 04:00 98.5 59 16 102/54 (70) 97 04/27/17 00:00 98.0 74 16 130/73 (92) 98 04/26/17 19:00 98.7 65 17 133/69 (90) 98 04/26/17 16:00 97.1 67 20 115/61 (79) 95 I/O 04/26/17 04/26/17 04/26/17 04/27/17 04/27/17 04/27/17 06:59 14:59 22:59 06:59 14:59 22:59 Intake Total 480 ml 480 ml 480 ml 480 ml Balance 480 ml 480 ml 480 ml 480 ml Intake Oral 480 ml 480 ml 480 ml 480 ml # Voids 3 3 3 4 # Bowel Movements 0 1 0 0 Result Diagram: 04/24/1711 04/24/17710 Imaging Last Impressions Chest X-Ray 04/22/171957 Signed Impressions: Service Date/Time: Saturday, April 22, 2017 20:51 - CONCLUSION: 1. Cardiomegaly. 2. Mild pulmonary vascular congestion bilaterally. 3. Degenerative changes and scoliosis of the thoracolumbar spine. Brian Freeman MD Thoracic Spine CT 04/22/17 0000 Signed Impressions: Service Date/Time: Saturday, April 22, 2017 21:22 - CONCLUSION: 1. Acute mild compression deformity involving the superior end plate of L1 with 5 mm of retropulsion of the posterior superior aspect of the vertebral body which results in minimal effacement of the anterior thecal sac but no spinal stenosis. 2. Probable mild chronic compression deformities involving T1 and T4. 3. Degenerative changes and scoliosis of the thoracic spine. 4. Coronary artery calcifications. 5. Diffuse interstitial infiltrates predominantly posteriorly consistent with acute or chronic interstitial disease. Brian Freeman MD Lumbar Spine CT 04/22/17 0000 Signed Impressions: Service Date/Time: Saturday, April 22, 2017 21:22 - CONCLUSION: 1. Acute comminuted fracture involving the left sacrum. 2. Acute mild compression deformities involving the superior end plates of L1 and L2 with minimal retropulsion of the posterior superior vertebral bodies measuring 5 mm at L1 and 3 mm at L2 but resulting in no significant spinal stenoses at these levels. 3. Moderate circumferential spinal stenosis and bilateral foraminal narrowing at L5-S1 secondary to diffuse disc bulge, facet joint hypertrophy and ligamentous laxity . 4. Multiple infrarenal abdominal aortic aneurysms with the largest noted distally and measuring 3.2 cm in greatest transverse dimension. 5. Diffuse osteoporosis of the lumbar spine. Brian Freeman MD Lower Extremity CT 04/22/17 0000 Signed Impressions: Service Date/Time: Saturday, April 22, 2017 21:22 - CONCLUSION: 1. Acute comminuted fracture involving the left sacrum. 2. Acute fracture involving the left symphysis pubis. 3. Degenerative changes involving the left hip joint as well as sclerosis of the left femoral head suggesting possible osteonecrosis. 4. No acute fracture of the left proximal femur. 5. Old fracture involving the left inferior pubic ramus. Brian Freeman MD Hip and Pelvis X-Ray 04/22/17 0000 Signed Impressions: Service Date/Time: Saturday, April 22, 2017 20:53 - CONCLUSION: 1. Questionable subtle cortical irregularity involving the subcapital region of the left proximal femur raising the possibility of subtle fracture. Clinical correlation is recommended. 2. Acute left sacrum fracture. 3. Old fractures involving the left superior and inferior pubic rami. 4. Mild degenerative changes involving the left hip joint. 5. Degenerative changes involving the lower lumbar spine. Brian Freeman MD Head CT 04/22/17 0000 Signed Impressions: Service Date/Time: Saturday, April 22, 2017 21:19 - CONCLUSION: 1. Diffuse stable cerebral atrophy. 2. No acute intracranial abnormality. Brian Freeman MD Cervical Spine CT 04/22/17 0000 Signed Impressions: Service Date/Time: Saturday, April 22, 2017 21:19 - CONCLUSION: 1. No acute fracture or prevertebral soft tissue swelling. 2. Moderate left neural foraminal narrowing at C5-6 and C6-7. 3. Grade I anterolisthesis of C7 in relation to T1 and C4 and in relation to C5. 4. Cervical spondylosis at C5-6 and C6-7. 5. No bony spinal canal stenosis. Brian Freeman MD Objective Remarks General: Elderly female in no acute distress. Sitting up on the edge of the bed. Heart: Regular rate and rhythm. No murmur. Lungs: Clear to auscultation bilaterally. No wheezes, rales, or rhonchi. Breathing is nonlabored. Abdomen: Soft, nontender, nondistended. Positive bowel sounds. Extremities: No lower extremity edema. Psych: Alert and oriented. Procedures None Urinary Catheter: No Vascular Central Line Catheter: No A/P Problem List: (1) Fall ICD Code: W19.XXXA - Unspecified fall, initial encounter Status: Acute (2) Sacral fracture, closed ICD Code: S32.10XA - Unspecified fracture of sacrum, initial encounter for closed fracture Status: Acute (3) Compression fracture of L1 lumbar vertebra ICD Code: S32.010A - Wedge compression fracture of first lumbar vertebra, initial encounter for closed fracture Status: Acute (4) Compression fracture of L2 lumbar vertebra ICD Code: S32.020A - Wedge compression fracture of second lumbar vertebra, initial encounter for closed fracture Status: Acute (5) Closed fracture of left side of symphysis pubis ICD Code: S32.592A - Other specified fracture of left pubis, initial encounter for closed fracture Status: Acute (6) COPD (chronic obstructive pulmonary disease) ICD Code: J44.9 - Chronic obstructive pulmonary disease, unspecified Status: Acute (7) Thrombocytopenia ICD Code: D69.6 - Thrombocytopenia, unspecified Assessment and Plan 04/27/17: Appreciate gynecology evaluation. Nursing is attempting to obtain urine sample. Cleared for discharge by orthopedic surgery. 1. Status post mechanical trip and fall with head trauma, no loss of consciousness: Head CT shows no acute change. CT of the cervical spine shows no fracture. 2. Left sacral fracture: Secondary to above. There is an acute comminuted fracture of the left sacrum. Appreciate orthopedic surgery recommendations. Continue pain control. 3. Left pubic fracture: Secondary to above. Continue pain control. 4. L1-L2 compression fracture: Continue pain control. Continue TLSO brace. 5. Pancytopenia: Platelets are trending down. Recheck labs in the morning. No apparent active bleeding at this time. 6. COPD with chronic respiratory failure: Stable. Not in acute exacerbation. Oxygen requirement increased to 4L today. Duoneb as needed. 7. Constipation: Continue bowel regimen. 8. DVT prophylaxis: Lovenox. Discharge Planning Discharge to SNF once UA results are available. Problem Qualifiers (1) Sacral fracture, closed: Qualified Codes: S32.10XA - Unspecified fracture of sacrum, initial encounter for closed fracture (2) Compression fracture of L1 lumbar vertebra: (3) Compression fracture of L2 lumbar vertebra: (4) Closed fracture of left side of symphysis pubis: Qualified Codes: S32.592A - Other specified fracture of left pubis, initial encounter for closed fracture (5) COPD (chronic obstructive pulmonary disease): Qualified Codes: J44.9 - Chronic obstructive pulmonary disease, unspecified Milton Bhatti MD Apr 27, 2017 13:21
[2017-04-27 14:22] LABS: BACTERIA, URINE MOD /hpf; BLOOD, URINE SMALL (NEG); GLUCOSE,URINE NEG (NEG); KETONE, URINE 10 mg/dL (NEG); MUCUS URINE FEW /lpf (OCC); NITRITE,URINE POS (NEG); PH, URINE 5.5 (5.0-8.5); SQUAMOUS EPITHELIAL CELL URINE 1 /hpf (0-5); URINE COLOR YELLOW (YELLW/STRAW)
[2017-04-27 14:23] LABS: COMMENT (UR) CULTURE INDICATED; CULTURE IF INDICATED CULTURE INDICATED
[2017-04-27] MEDS ORDERED: AUGM875T3 PO (15:01)
[2017-04-27] MEDS ORDERED: MISOPROSTOL 25 MCG SUPP VAGINAL PRN (16:00)
[2017-04-27] MEDS ORDERED: AMOXICILLIN/CLAVULANATE K 875 MG TAB PO ONE (17:00)
[2017-04-27] MEDS ORDERED: SODIUM CHLORIDE 0.9% FLUSH 10 ML FLUSH IV FLUSH SCH (21:00)
--- NOTE | 2017-05-22 16:09 | HHI.DS ---
Discharge Summary Admission Date Apr 22, 2017 at 22:55 Discharge Date: Apr 27, 2017 Admitting Diagnosis sacrum fracture, pubic symphysis fracture, lumbar spine compression fxs (1) Fall ICD Code: W19.XXXA - Unspecified fall, initial encounter Status: Acute (2) Sacral fracture, closed ICD Code: S32.10XA - Unspecified fracture of sacrum, initial encounter for closed fracture Status: Acute (3) Compression fracture of L1 lumbar vertebra ICD Code: S32.010A - Wedge compression fracture of first lumbar vertebra, initial encounter for closed fracture Status: Acute (4) Compression fracture of L2 lumbar vertebra ICD Code: S32.020A - Wedge compression fracture of second lumbar vertebra, initial encounter for closed fracture Status: Acute (5) Closed fracture of left side of symphysis pubis ICD Code: S32.592A - Other specified fracture of left pubis, initial encounter for closed fracture Status: Acute (6) COPD (chronic obstructive pulmonary disease) ICD Code: J44.9 - Chronic obstructive pulmonary disease, unspecified Status: Acute (7) Thrombocytopenia ICD Code: D69.6 - Thrombocytopenia, unspecified Procedures None Brief History - From Admission This is an 82-year-old female with a PMH of Anxiety, Depression, COPD, Hepatitis B and C and Hypothyroidism who was brought to the ER secondary to c/o hip pain after a fall. Per pt she tripped over one of 's shoes and landed on left hip. +head trauma, no LOC reported. On arrival, BP 118/70, HR 58, O2 sat 80% on RA, Afebrile. Currently O2 sat 93% on 2L NC. CBC unremarkable except for platelets 133, previously 167 on 07/07/15. GFR 82, previously 169 on 07/07/15. Troponin negative. INR 1.0 CXR with mild pulmonary vascular congestion bilaterally. CT Head with no acute findings. CT C-spine negative. CT T/L Spine with acute mild compression deformity of L1 and L2, moderate spinal stenosis and bilateral foraminal narrowing at L5-S1, infrarenal abdominal aortic aneurysms, largest 3.2 cm, CT Lower Extremity w/ acute comminuted fracture involving left sacral and acute fracture involving left symphysis pubis. Ortho consulted by ER physician, recommended TLSO brace and eval in am. Imaging Last Impressions Chest X-Ray 04/22/171957 Signed Impressions: Service Date/Time: Saturday, April 22, 2017 20:51 - CONCLUSION: 1. Cardiomegaly. 2. Mild pulmonary vascular congestion bilaterally. 3. Degenerative changes and scoliosis of the thoracolumbar spine. Brian Freeman MD Thoracic Spine CT 04/22/17 0000 Signed Impressions: Service Date/Time: Saturday, April 22, 2017 21:22 - CONCLUSION: 1. Acute mild compression deformity involving the superior end plate of L1 with 5 mm of retropulsion of the posterior superior aspect of the vertebral body which results in minimal effacement of the anterior thecal sac but no spinal stenosis. 2. Probable mild chronic compression deformities involving T1 and T4. 3. Degenerative changes and scoliosis of the thoracic spine. 4. Coronary artery calcifications. 5. Diffuse interstitial infiltrates predominantly posteriorly consistent with acute or chronic interstitial disease. Brian Freeman MD Lumbar Spine CT 04/22/17 0000 Signed Impressions: Service Date/Time: Saturday, April 22, 2017 21:22 - CONCLUSION: 1. Acute comminuted fracture involving the left sacrum. 2. Acute mild compression deformities involving the superior end plates of L1 and L2 with minimal retropulsion of the posterior superior vertebral bodies measuring 5 mm at L1 and 3 mm at L2 but resulting in no significant spinal stenoses at these levels. 3. Moderate circumferential spinal stenosis and bilateral foraminal narrowing at L5-S1 secondary to diffuse disc bulge, facet joint hypertrophy and ligamentous laxity . 4. Multiple infrarenal abdominal aortic aneurysms with the largest noted distally and measuring 3.2 cm in greatest transverse dimension. 5. Diffuse osteoporosis of the lumbar spine. Brian Freeman MD Lower Extremity CT 04/22/17 0000 Signed Impressions: Service Date/Time: Saturday, April 22, 2017 21:22 - CONCLUSION: 1. Acute comminuted fracture involving the left sacrum. 2. Acute fracture involving the left symphysis pubis. 3. Degenerative changes involving the left hip joint as well as sclerosis of the left femoral head suggesting possible osteonecrosis. 4. No acute fracture of the left proximal femur. 5. Old fracture involving the left inferior pubic ramus. Brian Freeman MD Hip and Pelvis X-Ray 04/22/17 0000 Signed Impressions: Service Date/Time: Saturday, April 22, 2017 20:53 - CONCLUSION: 1. Questionable subtle cortical irregularity involving the subcapital region of the left proximal femur raising the possibility of subtle fracture. Clinical correlation is recommended. 2. Acute left sacrum fracture. 3. Old fractures involving the left superior and inferior pubic rami. 4. Mild degenerative changes involving the left hip joint. 5. Degenerative changes involving the lower lumbar spine. Brian Freeman MD Head CT 04/22/17 0000 Signed Impressions: Service Date/Time: Saturday, April 22, 2017 21:19 - CONCLUSION: 1. Diffuse stable cerebral atrophy. 2. No acute intracranial abnormality. Brian Freeman MD Cervical Spine CT 04/22/17 0000 Signed Impressions: Service Date/Time: Saturday, April 22, 2017 21:19 - CONCLUSION: 1. No acute fracture or prevertebral soft tissue swelling. 2. Moderate left neural foraminal narrowing at C5-6 and C6-7. 3. Grade I anterolisthesis of C7 in relation to T1 and C4 and in relation to C5. 4. Cervical spondylosis at C5-6 and C6-7. 5. No bony spinal canal stenosis. Brian Freeman MD PE at Discharge General: Elderly female in no acute distress. Sitting up on the edge of the bed. Heart: Regular rate and rhythm. No murmur. Lungs: Clear to auscultation bilaterally. No wheezes, rales, or rhonchi. Breathing is nonlabored. Abdomen: Soft, nontender, nondistended. Positive bowel sounds. Extremities: No lower extremity edema. Psych: Alert and oriented. Hospital Course The patient was admitted for management of back pain secondary to sacral and pubic fractures. Or speech surgery was consulted and recommended conservative management. She reported pelvic pain secondary to recent gynecologic surgery. Oncology was consulted and evaluated the patient. Her symptoms were felt to be likely secondary to urinary tract infection. Urinalysis was abnormal. She was started on antibiotics. Patient was cleared for discharge by orthopedic surgery. Arrangements were made for the patient to be discharged to halfway facility. Pt Condition on Discharge: Stable Discharge Disposition: Discharge to SNF Discharge Time: > 30 minutes Discharge Instructions DIET: Follow Instructions for: As Tolerated, No Restrictions Activities you can perform: Weight Bearing as Purnima Activities to Avoid: Lifting/Bending Follow up Referrals: [employer] AIDE - 1 Week Orthopedics - 1 Week with Evaristo Riley MD PCP Follow-up - 2 Weeks New Medications: Amoxicillin-Clavulanate (Augmentin) 875-125 Mg Tab 1 TAB PO BID for Infection, #10 TAB 0 Refills Lorazepam (Lorazepam) 0.5 Mg Tab 0.5 MG PO BID PRN for ANXIETY AND/OR INSOMNIA, #6 TAB 0 Refills Morphine IR (Morphine IR) 15 Mg Tab 7.5 MG PO Q6H PRN for PAIN SCALE 6 TO 10, #6 TAB 0 Refills Sennosides-Docusate Sodium (Senna Plus 8.6-50 mg) 8.6 Mg-50 Mg Tab 1 TAB PO BID for Constipation, #10 TAB Continued Medications: Levothyroxine (Synthroid) 112 Mcg Tab 112 MCG PO DAILY for Thyroid, #30 TAB 0 Refills Synthroid 112 mcg (Synthroid 112 mcg) 112 Mcg Tab 112 MCG PO DAILY, TAB Discontinued Medications: Lorazepam (Lorazepam) 1 Mg Tab 1 MG PO BID PRN for SLEEP, TAB Lorazepam (Lorazepam) 1 Mg Tab 1 MG PO DAILY PRN for ANXIETY, TAB 0 Refills Oxycodone-Acetaminophen 5-325 mg (Percocet 5-325 mg) 1 Tab 1 TAB PO Q8HR PRN for PAIN SCALE 1 TO 10, #15 TAB Temazepam (Temazepam) 30 Mg Cap 30 MG PO HS PRN for INSOMNIA, CAP 0 Refills Temazepam 30 mg (Restoril 30 mg) 30 Mg Cap 1 CAP PO HS for 7 Days, CAP [2ND Thyroid Med] () PO DAILY Milton Bhatti MD May 22, 2017 16:09
== END 2017-04-27 17:16 | DRG 552 ==
LOC: NEPE 18:53 → NEDA 22:55 → N06A 23:46
PROVIDERS: ADMIT Family Medicine; ATTEND Family Medicine
DX: S32.10XA Unspecified fracture of sacrum, initial encounter for closed fracture (principal); D61.818 Other pancytopenia; J96.11 Chronic respiratory failure with hypoxia; S32.592A Other specified fracture of left pubis, initial encounter for closed fracture; S32.018A Other fracture of first lumbar vertebra, initial encounter for closed fracture; D69.6 Thrombocytopenia, unspecified; Z99.81 Dependence on supplemental oxygen; J44.9 Chronic obstructive pulmonary disease, unspecified; I71.4 Abdominal aortic aneurysm, without rupture; F41.9 Anxiety disorder, unspecified; F32.9 Major depressive disorder, single episode, unspecified; E03.9 Hypothyroidism, unspecified; K59.00 Constipation, unspecified; G47.00 Insomnia, unspecified; W01.0XXA Fall on same level from slipping, tripping and stumbling without subsequent striking against object, initial encounter; Y92.009 Unspecified place in unspecified non-institutional (private) residence as the place of occurrence of the external cause
CPT/HCPCS: 70450; 71010; 72125; 72128; 72131; 73502; 73700; 80048; 80053; 81001; 82550; 82552; 82805; 83735; 84484; 85025; 85610; 85730; 87077; 87086; 87186; 90471; 93005; G0009; J1650; J1885; J2270; J7030; L0200; L0484